=== PATIENT | female | born 1960 | race Caucasian/White ===

== ENCOUNTER 2020-11-04 14:54 | Outpatient (REF) | payer BC, SELFPAY ==
[2020-11-05 16:43] LABS: COVID-19 RT-PCR UVMMC Result Negative (Negative)
== END 2020-11-04 15:14 ==
LOC: LBN 14:54
PROVIDERS: PCP Family Medicine; Visit Provider Nurse Practitioner Adult Health
DX: R05 Cough (principal); J22 Unspecified acute lower respiratory infection; Z20.822 Contact with and (suspected) exposure to COVID-19
CPT/HCPCS: U0003

== ENCOUNTER 2021-03-24 15:21 | Outpatient (REF) | payer BC, SELFPAY ==
--- NOTE | 2021-03-24 14:30 | PAPFT_PTH ---
PATIENT: Bear Stiles LOC: MAR U#:[id number] AGE/SX: 61/F ROOM: RE03/24/[address]: Jean Pierre Humphreys MD : 1960 BED: DIS: 03/24/2021 SPEC #: [id number] RECD: 03/24/21 18:01 STATUS: ABRAHAM REToro #: [id number] SONIA: 03/24/21 14:[address]: Jean Pierre Humphreys DEPT: [facility] Cytology RECD BY: Adela Lagos Tissues: 1 - CX/ENDOCX FOR PAP SMEARS Procedures: PAP THIN PREP/UVM Screening HPV DNA PROBE Comments: [id number]
== END 2021-03-24 15:22 | disposition home or self-care (01) ==
LOC: LBN 15:21
PROVIDERS: PCP Family Medicine; Visit Provider Family Medicine
DX: Z12.4 Encounter for screening for malignant neoplasm of cervix (principal); Z11.51 Encounter for screening for human papillomavirus (HPV)
CPT/HCPCS: 88142; 87624

== ENCOUNTER 2021-04-06 01:12 | Outpatient (CLI) | payer BC, SELFPAY ==
--- NOTE | 2021-04-06 08:45 | DI.MAMMO_ITS ---
Exam(s) MAMMO SCREENING EXAM: MAMMO SCREENING CLINICAL HISTORY: screening, Z12.39. TECHNIQUE: Bilateral full field digital CC and MLO mammographic images were obtained with 3D tomosyn thesis and utilizing computer aided detection (CAD). COMPARISON: Prior mammogram performed October 2014. There are no interval mammograms. FINDINGS: Fibroglandular tissue is again noted be very dense, this decreasing the sensitivity of the mammogram for finding in underlying lesions There are no obvious new spiculated masses nor malignant appearing microcalcification groups. Multip le punctate microcalcifications in the upper-outer quadrant of the right breast are noted. There is no significant architectural distortion nor skin thickening-retraction. IMPRESSION: Very dense bilateral fibroglandular tissue. No obvious radiographic evidence of malignancy. Given the density of this patient's fibroglandular tissue I recommend screening bilateral complete br east ultrasound BI-RADS Category 2 - Benign Findings Breast Density - Category D - Extremely dense Breast density Category C or D implies that the patient has dense breast tissue. Dense breast tissue can make it harder to find cancer on a mammogram. Dense breast tissue is also associated with an incr eased risk of breast cancer. This information about the result of the mammogram report was provided to the patient to raise their awareness. Use this report when you speak with the patient about their risks for breast cancer, which includes their family history. At that time, you may recommend additional screening tests (Ultrasoun d or MRI) as these tests may add significant information. A negative radiographic report should not delay biopsy if a dominant or clinically suspicious mass is present. Up to ten percent of cancers are not identified on mammography. A negative report may reinforce clinical impression. Adenosis and dense breasts may obscure an underlying neoplasm. False positive reports average 6 to 10%. Patient will receive a letter notifying them of these results.
== END 2021-04-06 01:32 ==
PROVIDERS: PCP Family Medicine; Visit Provider Family Medicine
DX: Z12.31 Encounter for screening mammogram for malignant neoplasm of breast (principal); R92.0 Mammographic microcalcification found on diagnostic imaging of breast
CPT/HCPCS: 77063; 77067

== ENCOUNTER 2023-06-04 06:05 | Emergency (ER) | payer BC, SELFPAY ==
[2023-06-04 06:34] VITALS: BP 118/63; PULSE 62; RESP 14; TEMP 36.4; O2SAT 99
[2023-06-04 06:43] VITALS: RESP 14
--- NOTE | 2023-06-04 06:53 | ED.GENADUL_ITS ---
Discharge Plan Disposition Patient Disposition: Home Condition: Stable Discharge Details Chief Complaint: GenMedical Clinical Impression: Edema Primary Care Provider: Jean Pierre Humphreys ED Provider: Haris Carrington Home Meds and New Rx's Prescriptions: No Action No Known Home Meds Discharge Instructions Instructions: Edema (ED) Additional Instructions: Please obtain compression stockings. Please follow-up with your primary care physician. Medical Decision Making 63-year-old female presents with bilateral lower extremity edema involving feet and ankles, mild in nature, patient does walk a lot is on her feet for extended periods of time, likely simple dependent edema lower suspicion for CHF or DVT. No evidence of infection or trauma. Will dose low-dose Lasix here. Instructed patient to obtain compression stockings and continue with elevation of legs. Patient will follow with primary care physician HPI General Date/Time Provider Initiated Documentation: 06/04/23 06:12 . HPI Narrative: 63-year-old female presents with 2 to 3 weeks of bilateral lower extremity edema involving feet and ankles denies chest pain or shortness of breath. Does walk a lot and is on her feet for extended periods of time. Related Data Home Medications Medication Instructions Recorded Confirmed Unknown [No Known Home Meds] 03/24/21 06/04/23 Allergies Allergy/AdvReac Type Severity Reaction Status Date / Time No Known Allergies Allergy Verified 06/04/23 06:37 General Stated Complaint: AMS/LOC JONY: 3 Review of Systems Narrative: Review of Systems Constitutional: negative Eyes: negative ENT: negative Cardiovascular: negative Respiratory: negative Gastrointestinal: negative : negative Musculoskeletal: Lower extremity edema Skin: negative Neurologic: negative Psych: negative PFSH All Active Problems (Updated 06/04/23 @ 06:56 by Haris Carrington MD) Edema (Acute) Dense breasts (Acute) Pneumonia (Acute) Nicotine use disorder (Chronic) Medical History Nicotine use disorder Surgical History LUNG SURGERY 1995;[facility] – [place]; COLLAPSED LUNG WITH REPAIRATIVE SURGERY Family History (Updated 03/28/21 @ 15:58 by Bekah Donovan) Father Heart disease Grandfather Heart disease Grandmother TB (tuberculosis) Son , 4.5 No problems noted. Son No problems noted. Son No problems noted. Social History (Updated 03/28/21 @ 15:57 by Bekah Donovan) Smoking/Tobacco Use Status: Current every day Tobacco Type: cigarettes Tobacco: How many years used: 40 Quit status: not considering quitting Second Hand Exposure: Yes Smoking risk assessment performed?: Yes Alcohol Intake: former Drug use: Never Household members: children Housing: house Communication Needs: Corrective Lenses Do you need help understanding health information?: Never Pets and animals: No Sexually active: No Do you think of yourself as: straight/heterosexual Current gender identity: male What is your relationship status?: never How often do you talk on the phone with friends or family?: once per week How often do you get together with friends or relatives?: once per week How often do you attend buddhist or sabianist services?: decline to answer Do you belong to any clubs or organized social groups?: no Panel score (0-1 are the most socially isolated patients): 0 What type of physical activity do you participate in: walking Duration: 60-90 minutes/day Frequency: daily Kenzie/Amish: No preference Special kenzie needs: No Seatbelt use: always Helmet use: No Drive intox or ride w/intox city bus driver: No Do you feel safe at home: Yes Do you feel safe in your relationship?: Yes Exam Narrative Exam Narrative: Physical Examination General: alert, awake, cooperative, resting comfortably, no acute distress HEENT: normocephalic, atraumatic; PERRL, EOM intact, conjunctiva normal; no nasal discharge; moist mucous membranes, oral and pharyngeal mucosa normal, tolerating secretions Neck: supple, trachea midline; full ROM Chest: normal to inspection Respiratory: normal respiratory effort, speaking in full sentences Skin: no lesions, rashes or trauma appreciated Neuro: AAOx3, normal speech, moving all extremities Extremities: Mild edema to feet and ankles bilaterally Psych: Appropriate mood and affect Course Vital Signs Vital signs: Vital Signs Temperature 36.4 C L 06/04/23 06:34 Pulse 62 06/04/23 06:34 Respiratory Rate 14 06/04/23 06:34 Blood Pressure 118/63 06/04/23 06:34 Pulse Oximetry 99 06/04/23 06:34 Temperature 36.4 C L 06/04/23 06:34 Temperature Source Temporal Artery Scan 06/04/23 06:34 Pulse 62 06/04/23 06:34 Respiratory Rate 14 06/04/23 06:43 Respiratory Effort Normal, Non-Labored 06/04/23 06:43 Respiratory Depth Normal 06/04/23 06:43 Respiratory Pattern Normal 06/04/23 06:43 Blood Pressure 118/63 06/04/23 06:34 Blood Pressure Position Sitting 06/04/23 06:34 Pulse Oximetry 99 06/04/23 06:34 Oxygen Delivery Method Room Air 06/04/23 06:34 Oxygen Flow Rate 0 06/04/23 06:34 Pain Level 0 06/04/23 06:34
[2023-06-04 07:08] VITALS: BP 132/80; PULSE 75; RESP 20; TEMP 36.8; O2SAT 98
[2023-06-04] MEDS: Furosemide 20 MG/2 ML VIAL IVP (07:08)
== END 2023-06-04 07:13 | disposition home or self-care (01) ==
PROVIDERS: Emergency Provider Emergency Medicine; PCP Family Medicine
DX: R60.0 Localized edema (principal)
CPT/HCPCS: 36415; 96374; 99284; J1941

== ENCOUNTER 2023-08-22 12:05 | Emergency (ER) | payer BC, SELFPAY ==
[2023-08-22] VITALS (19 sets, daily range): BP systolic 115–173; BP diastolic 79–90; PULSE 63–82; RESP 16–18; TEMP 36.5; O2SAT 91–99
--- NOTE | 2023-08-22 12:27 | NUR.NOTE ---
Nursing Note: patient continues to cough and spit out elan red blood in to emesis bag, with runny nose patient reports no blood when she blows nose
--- NOTE | 2023-08-22 13:00 | DI.CT_ITS ---
Exam(s) CT CHEST W EXAM: CT CHEST W CLINICAL HISTORY: [id number] TECHNIQUE: Imaging Protocol: Axial computed tomography images with coronal and sagittal reformatted images were created and reviewed CONTRAST MATERIAL: Intravenous: Omnipaque 350Contrast volume:100 mL. COMPARISON: CR CHEST 2 VIEWS PA,LAT from 02/16/2013 FINDINGS: Tracheobronchial tree: Bronchiectatic changes are seen in the right upper lobe. Pulmonary parenchyma: There is a 5 mm nodule in the right middle lobe. There is a multifocal ground- glass infiltrate in the right lung predominantly in the right upper lobe. No focal consolidating inf iltrate is seen in the left. Marked bullous disease is seen in the lungs particularly the right uppe r lobe. There are areas of consolidation in the right upper lobe. There is bronchiectasis in the ri ght upper lobe. Mediastinum and Hanny: No dominant adenopathy or fluid collection. The esophagus is unremarkable. Thyroid gland: Tiny hypodensities are seen in both lobes of the thyroid gland. They are too small fo r further characterization. No follow-up is recommended. Pleura: No effusion or pneumothorax. Heart: The heart is not dilated. No coronary artery calcifications are seen. No pericardial effusion. Aorta: Thoracic aorta non-dilated. No evidence of dissection. Pulmonary arteries: There is no evidence of a central pulmonary embolism. Upper abdomen: There is a 2.1 cm cyst in the liver. There are few tiny hypodensities scattered in t he liver. They are too small for further characterization. Lymph nodes: Within normal limits. Bones: Within normal limits for the patient's age. Soft tissues: Unremarkable. IMPRESSION: 1. Right upper, middle and lower lobe infiltrate suspicious for pneumonia. 2. Marked bullous disease and bronchiectasis in the lungs particularly in the right upper lobe. 3. Findings were discussed with Dr. Leone at 2:28 p.m. on 08/22/2023. RADIATION DOSE DELIVERED: Total DLP DATA REPOSITORY: All CT scans at this facility are submitted to the National Radiology Data Registry (NRDR) Dose Index Registry (DIR) with the [employer] (ACR). RADIATION OPTIMIZATION: All CT scans at this facility use at least one of these dose optimization te chniques: automated exposure control; mA and/or kV adjustment per patient size (includes targeted exa ms where dose is matched to clinical indication); or iterative reconstruction.
--- NOTE | 2023-08-22 13:00 | W.ED.GENAD ---
Discharge Plan Disposition Patient Disposition: Home Discharge Details Clinical Impression: Pneumonia, Nicotine use disorder, Anemia, Thrombocytopenia, Bronchiectasis, Bronchospasm Primary Care Provider: Jean Pierre Humphreys ED Provider: Ashely Leone Home Meds and New Rx's Prescriptions: New azithromycin [Zithromax] 250 mg tablet 250 mg PO DAILY 4 Days Qty: 4 0RF Rx Instructions: start on day 2 of therapy albuterol sulfate 90 mcg/actuation HFA aerosol inhaler 3 puff inhalation Q4H PRNQty: 6.7 0RF Rx Instructions: Take up to 3 puffs 5 minutes apart every 4 hours as needed for wheezing. Use with spacer. Discharge Instructions Instructions: How to Stop Smoking (ED), Anemia (ED), Pneumonia (ED) Additional Instructions: 1. Call Dr. Humphreys for a follow-up appointment and recheck. Tell him you were seen in the emergency department today for coughing up blood and a CT scan revealed pneumonia. 2. Tell them you were also found to be slightly anemic and we recommended that it be rechecked. 3. We also found some blood in the urine and you will be following up with urology. 4. Start azithromycin 250 mg 1 tablet once a day for 4 days starting tomorrow. We recommend you take a probiotic while on antibiotics. 5. We have also prescribed an inhaler to take for wheezing and/or shortness of breath. Stand Alone Forms: Work Release Discharge Data Discharge Physician: Ashely Leone Medical Decision Making This is a healthy 63-year-old female with a long history of tobacco use who presents with hemoptysis. She tells me she was in her usual state of health until this morning when she developed rhinorrhea and then paroxysmal coughing and hemoptysis of bright red blood several tablespoons. She is not on therapeutic anticoagulants and denies any other pathologic bleeding or unusual bruising. She tells me she is chronically short of breath but does not use oxygen at home and is not on any inhaler. I am concerned this could be a carcinoma or chills could be minor trauma from coughing. She has had no exposure to tuberculosis. We will check her for COVID RSV and flu, we will check a CBC for leukocytosis anemia and left shift and to check her platelet count. I will also check coagulants. I will check a basic metabolic panel to check her renal function and electrolytes prior to a CT of her chest. I have spoken with the radiologist regarding the chest CT and he recommended a CT with contrast but not on a CT angio. She does have slight wheezing but I am going to hold on beta agonists until her chest CT. We will type and screen her. I will also check a urine for hematuria. Differential Diagnosis Differential Diagnosis: Hemoptysis, pneumonia, carcinoma, coagulopathy, tuberculosis Medical Records Medical records reviewed: Yes I reviewed the patient's medical records. Medical records narrative: According to her old records she has had spontaneous pneumothoraces twice with lung surgery for or repair of a pulmonary bleb. The patient did not offer the sister read to me Imaging Data Radiologic Study: Imaging: CT Scan (CT chest with IV contrast) Radiologist's impression: 1. Right upper, middle and lower lobe infiltrate suspicious for pneumonia. 2. Marked bullous disease and bronchiectasis in the lungs particularly in the right upper lobe. 3. Findings were discussed with Dr. Leone at 2:28 PM on 08/22/2023. Lab Data Lab results reviewed: Yes I reviewed the patient's lab results. Lab results narrative: Mild anemia and mild hyponatremia, hematuria. Mild thrombocytosis. The patient was updated. [facility] General Date/Time Provider Initiated Documentation: 08/22/23 12:41. Limitations to Documentation: no limitations. Information obtained by: patient. [facility] Narrative: Time seen was 1500 in bed 7. The patient is a 63-year-old female with a 45-year history of tobacco use who presents with hemoptysis. The patient states she was in her usual state of health until this morning when she began coughing and could not stop and then began coughing up bright red blood. This happened multiple times. She brought in the Kleenex into which she coughed the blood to the emergency department along with an emesis bag that had a small amount of bright red blood in it as well. She believes that she may have coughed up several tablespoons worth of blood. She states that she always bruises easily but has not noticed an increase in bruising. She is not on therapeutic anticoagulants. She denies any bleeding of her gums or blood in the urine. She denies any chest pain. She has chronic shortness of breath which is unchanged. She does not use oxygen at home. She does not use any inhalers although she has been prescribed them in the past for bronchitis. She has no history of tuberculosis. She has had similar episodes in the past associated with upper respiratory infections but they resolved spontaneously. She denies any new weight loss. She states the cough is slightly improved. She denies any fever, chills, pleuritic chest pain, or any other respiratory symptoms although she does tell me that she developed some rhinorrhea prior to the paroxysmal coughing episode today. She states that the coughing has slightly improved since arrival. The symptoms began just prior to arrival. She denies any dizziness hematuria or blood in the stool. The patient had recent cataract surgery on the left eye. Related Data Home Medications Medication Instructions Recorded Confirmed albuterol sulfate 90 mcg/actuation 3 puff inhalation Q4H PRN #6.7 08/22/23 aerosol inhaler grams azithromycin 250 mg tablet 250 mg PO DAILY 4 days #4 tabs 08/22/23 (Zithromax) Previous Rx's Medication Instructions Recorded albuterol sulfate 90 mcg/actuation 3 puff inhalation Q4H PRN #6.7 08/22/23 aerosol inhaler grams azithromycin 250 mg tablet 250 mg PO DAILY 4 days #4 tabs 08/22/23 (Zithromax) Allergies Allergy/AdvReac Type Severity Reaction Status Date / Time No Known Allergies Allergy Verified 08/22/23 12:14 General Stated Complaint: GenMedical JONY: 3 Review of Systems Narrative: see hpi PFSH All Active Problems (Updated 08/22/23 @ 14:51 by Ashely Leone MD) Bronchospasm (Acute) Bronchiectasis (Acute) Thrombocytopenia (Chronic) Anemia (Chronic) Dense breasts (Acute) Pneumonia (Acute) Nicotine use disorder (Chronic) Surgical History LUNG SURGERY 1995;[facility] – [place]; COLLAPSED LUNG WITH REPAIRATIVE SURGERY Family History Father Heart disease Grandfather Heart disease Grandmother TB (tuberculosis) Son , 4.5 No problems noted. Son No problems noted. Son No problems noted. Social History Smoking/Tobacco Use Status: Current every day Tobacco Type: cigarettes Tobacco: How many years used: 40 Quit status: not considering quitting Second Hand Exposure: Yes Smoking risk assessment performed?: Yes Alcohol Intake: current Alcohol Intake frequency: holidays/special occasions only Drug use: Never Substance use type: does not use Household members: children Housing: house Communication Needs: Corrective Lenses Do you need help understanding health information?: Never Pets and animals: No Sexually active: No Do you think of yourself as: straight/heterosexual Current gender identity: male What is your relationship status?: never How often do you talk on the phone with friends or family?: once per week How often do you get together with friends or relatives?: once per week How often do you attend catholic or scientology services?: decline to answer Do you belong to any clubs or organized social groups?: no Panel score (0-1 are the most socially isolated patients): 0 What type of physical activity do you participate in: walking Duration: 60-90 minutes/day Frequency: daily Kenzie/Orthodox: No preference Special kenzie needs: No Seatbelt use: always Helmet use: No Drive intox or ride w/intox electric pile driver operator: No Do you feel safe at home: Yes Do you feel safe in your relationship?: Yes Exam Const General: cooperative, healthy appearing, comfortable, no acute distress, well developed, well groomed and well hydrated Nutritional Appearance: well nourished Orientation: alert, awake and oriented x3 Other: The patient is a thin well-developed female in no acute distress. She is mildly hypertensive. She is not tachycardic tachypneic or febrile. Her room air O2 sat is normal at 97%. [facility] Head: normal to inspection, normocephalic and atraumatic Ears: hearing grossly normal bilaterally and external ears normal General nose exam: external nose normal, nares normal and no nasal discharge Face and sinus: normal facial exam, sinuses nontender and face symmetric Mouth: oral mucosae normal, lip normal, tongue normal, oropharynx normal, moist mucous membranes and other (Normal phonation. The patient is handling secretions.) Teeth and gingiva: poor dentition Throat: posterior oropharynx normal and uvula midline Other: No bleeding noted of the gums. Did Eyes General: appearance normal, both eyes and all related structures Eyelids: eyelids normal Conjunctivae: conjunctivae normal Sclera: sclerae normal Cornea: corneas normal Pupils: PERRL EOM: EOM intact bilaterally and No nystagmus Other: The patient has had cataract surgery in the left eye with a lens implant Neck Neck: normal visual inspection, full ROM, no lymphadenopathy, no meningeal signs, trachea midline and supple Lymphatic: no lymphadenopathy noted Chest Other: No retractions, the patient has a small well-healed surgical scar in the anterior axillary line on the right. Resp Effort & Inspection: normal respiratory effort, able to speak in complete sentences, no nasal flaring, no respiratory distress, no retractions, no stridor, not tachypneic, no tracheal deviation, no use of accessory muscles, No prolonged expiratory phase and other (Normal inspiratory to expiratory ratio.) Auscultation: clear to auscultation bilaterally, no rales, no rhonchi, wheezes right lower and right upper and no rubs Tactile Fremitus: tactile fremitus absent Cardio Jugular venous pressure: no JVD Palpation: normal PMI Rate: regular rate Rhythm: regular rhythm Heart Sounds: S1 normal, S2 normal, no gallops, no murmurs and no rubs GI Inspection: normal to inspection and non-distended Palpation: soft, no hepatosplenomegaly, no guarding and nontender Percussion: normal to percussion Auscultation: normal bowel sounds General: No CVA tenderness Back/Spine/Pelvis Back: no CVA tenderness and No back tenderness Cervical Spine: normal cervical lordosis, cervical ROM normal, No cervical muscular tenderness, No pain with cervical ROM, No cervical spinal tenderness and No step off deformity Thoracic/Lumbar Spine: thoracic and lumbar spine normal to inspection, No thoracic spinal tenderness and No lumbar spinal tenderness Pelvis: no pain with anterior-posterior compression and no pain with lateral compression Skin General skin exam: no rashes or lesions noted, turgor normal, no petechiae, no purpura and other (Skin is normal for ethnicity.) Lesions: no lesions Rashes: no rashes Trauma: no lacerations or abrasions Other: The patient is anemic Neuro General: patient alert, patient awake, patient oriented x3, gait normal, moves all extremities, no meningeal signs, no focal motor deficits and CN's II-XI intact bilaterally Cranial Nerves: CN's II-XI intact bilaterally, PERRL, accommodation normal, EOM intact bilaterally, no nystagmus, facial strength normal, tongue midline, hearing normal and no nystagmus Cognition: normal cognition Speech: speech normal Gait: normal gait Motor: muscle tone normal throughout and strength 5/5 throughout Sensory Exam: no sensory deficits noted Extrem General: normal to inspection, full ROM, capillary refill normal, no clubbing, cyanosis or edema and no calf tenderness Psych Appearance: grossly normal Affect: normal affect Attitude: cooperative Thought Process: normal Thought Content: normal Insight: insight good Judgment: judgment good Other: The patient appears to have capacity make medical decisions. Course The radiologist has called to tell me that the patient has infiltrates in the right upper and right middle lobe. No evidence of carcinoma. She does have some chronic findings such as a bleb and bronchiectasis but no spontaneous pneumothorax. Please see below. I will update the patient and order IV antibiotics as well as a DuoNeb Vital Signs Vital signs: Vital Signs Temperature 36.5 C 08/22/23 12:09 Pulse 81 08/22/23 12:09 Respiratory Rate 18 08/22/23 12:09 Blood Pressure 173/80 H 08/22/23 12:09 Pulse Oximetry 97 08/22/23 12:09 Temperature 36.5 C 08/22/23 12:43 Temperature Source Temporal Artery Scan 08/22/23 12:09 Pulse 81 08/22/23 12:43 Respiratory Rate 18 08/22/23 12:43 Respiratory Effort Normal, Non-Labored 08/22/23 12:26 Respiratory Depth Normal 08/22/23 12:26 Blood Pressure 173/80 H 08/22/23 12:43 Blood Pressure Position Sitting 08/22/23 12:09 Pulse Oximetry 97 08/22/23 12:43 Oxygen Delivery Method Room Air 08/22/23 12:43 Oxygen Flow Rate 0 08/22/23 12:09 Lab/Test Results Lab/Test Results: Mild anemia, hematuria, thrombocytosis, mild hyponatremia, COVID flu and RSV are negative. Critical Care Time Critical Care Time Total Critical Care Time: 25 Attestation: This includes time at the bedside review of old records and review of radiographs and lab work
[2023-08-22] MEDS: Normal Saline 1,000 ML 1000 ML IV (13:25)
--- NOTE | 2023-08-22 13:28 | NUR.NOTE ---
Nursing Note: patient reports not spiting up blood for the last 15mins she feels like it is subsiding
[2023-08-22 13:36] LABS: Abs Immature Grans 0.02 10^3/uL (0.0-0.06); Absolute Basophil Count 0.09 10^3/uL (0.0-0.2); Absolute Eosinophil Count 0.18 10^3/uL (0.0-0.7); Absolute Lymphocyte Count 1.79 10^3/uL (1.2-3.4); Absolute Monocyte Count 0.58 10^3/uL (0.1-0.8); Basophils % 1.2; Eosinophils % 2.4; HCT 30.1 % (36.0-46.0); HGB 8.9 g/dL (11.2-15.7); Immature Grans % 0.3; MCH 22.2 pg (27.0-33.0); MCHC 29.6 % (32.0-36.0); MCV 75 fL (80-95); MPV 10.4 fL (8.0-11.0); Monocytes % 7.8; Neutrophils % 64.3; Platelet Count 403 10^3/uL (130-400); RBC 4.01 10^6/uL (3.93-5.22); RDW-SD 43.8 fL; WBC 7.46 10^3/uL (4.4-10.8)
[2023-08-22 13:38] LABS: Anion Gap 10.4 mmol/L (3-11); BUN 13 mg/dL (7-18); CO2 25.6 mmol/L (21.0-32.0); CREATININE 0.8 mg/dL (0.55-1.02); Calcium 9.3 mg/dL (8.5-10.1); Chloride 98 mmol/L (98-107); Estimated GFR 83.78 (mL/min/1.73m2); Glucose 96 mg/dL (74-106); Potassium 3.8 mmol/L (3.5-5.1); Sodium 134 mmol/L (136-145)
[2023-08-22 13:40] LABS: Bilirubin Negative (Negative); Blood Moderate (Negative); Clarity Clear (Clear); Glucose Negative (Negative); Ketones Negative (Negative); Leukocyte Esterase Negative (Negative); Nitrite Negative (Negative); Specific Gravity <= 1.005 (1.005-1.025); Urobilinogen 0.2 mg/dL (Up to 0.2); pH 5.5 (5-8)
[2023-08-22 13:43] LABS: PTT Activated 27.5 sec (23.6-32.8); Prothrombin Time 9.9 sec (9.1-11.1)
[2023-08-22 13:50] LABS: Bacteria Negative HPF (Negative); C & S Indicated? No; Casts Negative LPF (Negative); Crystals Negative HPF (Negative); Epithelial Cells Rare HPF (Negative); Mucus Negative (Negative); WBC Negative HPF (0-5)
[2023-08-22] MEDS: Normal Saline Flush 10 ML SYR IVP (13:52)
[2023-08-22] MEDS: Omnipaque 350 MG/ML 500 ML BTL-Imaging package IJ (13:53)
[2023-08-22] MEDS: Normal Saline - Diluent 50 ML VIAL IJ (13:57)
[2023-08-22 14:10] LABS: Influenza A PCR Negative (Negative); Influenza B PCR Negative (Negative); RSV PCR Negative (Negative)
[2023-08-22 14:27] LABS: Source Nasopharynx
[2023-08-22 14:28] LABS: COVID-19 PCR Negative (Negative)
--- NOTE | 2023-08-22 14:42 | NUR.NOTE ---
Referral faxed to [facility] Urology for hematuria, urology to determine appt date. Nursing Note:
[2023-08-22] MEDS: Azithromycin 250 MG TAB 500 MG PO (15:09)
[2023-08-22] MEDS: Albuterol/Ipratropium 3 ML UPD VIAL UPD (15:10)
[2023-08-22] MEDS: cefTRIAXone 2 GM/50 ML BAG IVPB (15:10)
== END 2023-08-22 16:31 | disposition home or self-care (01) ==
PROVIDERS: Emergency Provider Emergency Medicine Emergency Medical Services; PCP Family Medicine
DX: Z72.0 Tobacco use; J18.9 Pneumonia, unspecified organism; D64.9 Anemia, unspecified; D69.6 Thrombocytopenia, unspecified; J47.9 Bronchiectasis, uncomplicated; J98.01 Acute bronchospasm
CPT/HCPCS: 36415; 80048; 86850; 86900; 86901; 87637; 94640; 96361; 96365; 99285; 71260; 81003; 81015; 85025; 85610; 85730; J7620

== ENCOUNTER 2023-08-27 06:22 | Inpatient (IN) | payer BC, SELFPAY ==
[2023-08-27] VITALS (43 sets, daily range): BP systolic 110–194; BP diastolic 59–84; PULSE 74–127; RESP 2–28; TEMP 35.7–36.8; O2SAT 87–100
--- NOTE | 2023-08-27 06:43 | W.ED.GENAD ---
Discharge Plan Disposition Patient Disposition: Admit to [facility] Discharge Details Clinical Impression: Hypoxia, Pneumonia Primary Care Provider: Jean Pierre Humphreys ED Provider: Angélica Pennington Home Meds and New Rx's Prescriptions: No Action albuterol sulfate 90 mcg/actuation HFA aerosol inhaler 3 puff inhalation Q4H PRNQty: 6.7 0RF Rx Instructions: Take up to 3 puffs 5 minutes apart every 4 hours as needed for wheezing. Use with spacer. azithromycin 250 mg tablet Patient Comments: TAKE 1 TABLET BY MOUTH DAILY FOR 4 DAYS. START ON DAY 2 OF THERAPY Medical Decision Making Emergent evaluation of shortness of breath. Initial differential includes pneumonia, bronchospasm, COPD exacerbation. I reviewed the medical record and noted that she was recently treated for pneumonia with azithromycin. She is noted to be significantly hypoxic on arrival. O2 sat improved with supplemental oxygen. She is not febrile. She is otherwise hemodynamically stable. Will give steroids and breathing treatment, will check labs and cultures. Will repeat x-ray. Anticipate admission for failed outpatient antibiotics 0745: Chest x-ray reviewed, persistent infiltrate in the right upper lobe. Patient has improved with duoneb and oxygen. Will admit for failed pna treatment, and hypoxia. IV abx have been ordered. Medical Records Medical records reviewed: Yes I reviewed the patient's medical records. Lab Data Lab results reviewed: Yes I reviewed the patient's lab results. HPI General Date/Time Provider Initiated Documentation: 08/27/23 06:23. Limitations to Documentation: no limitations. Information obtained by: patient. HPI Narrative: 63-year-old female with past medical history of tobacco abuse and recent diagnosis of pneumonia presents with shortness of breath. She reports that she was evaluated in the emergency department last week and was diagnosed with pneumonia. She was treated with azithromycin and completed the course yesterday. She reports that she has not been having a productive cough, but her cough does still persist. No fevers. Decreased appetite. She reports that her shortness of breath that has been so significant that she has not been able to smoke. Related Data Home Medications Medication Instructions Recorded Confirmed albuterol sulfate 90 mcg/actuation 3 puff inhalation Q4H PRN #6.7 08/22/23 08/27/23 aerosol inhaler grams azithromycin 250 mg tablet mg 08/27/23 Previous Rx's Medication Instructions Recorded albuterol sulfate 90 mcg/actuation 3 puff inhalation Q4H PRN #6.7 08/22/23 aerosol inhaler grams Allergies Allergy/AdvReac Type Severity Reaction Status Date / Time No Known Allergies Allergy Verified 08/27/23 06:40 General Stated Complaint: RespSymp JONY: 3 PFSH All Active Problems (Updated 08/27/23 @ 07:42 by Angélica Pennington MD) Pneumonia (Acute) Hypoxia (Acute) Bronchospasm (Acute) Bronchiectasis (Acute) Thrombocytopenia (Chronic) Anemia (Chronic) Dense breasts (Acute) Pneumonia (Acute) Nicotine use disorder (Chronic) Surgical History LUNG SURGERY 1995;[facility] – [place]; COLLAPSED LUNG WITH REPAIRATIVE SURGERY Family History Father Heart disease Grandfather Heart disease Grandmother TB (tuberculosis) Son , 4.5 No problems noted. Son No problems noted. Son No problems noted. Social History Smoking/Tobacco Use Status: Current every day Tobacco Type: cigarettes Tobacco: How many years used: 40 Quit status: not considering quitting Second Hand Exposure: Yes Smoking risk assessment performed?: Yes Alcohol Intake: current Alcohol Intake frequency: holidays/special occasions only Drug use: Never Substance use type: does not use Household members: children Housing: house Communication Needs: Corrective Lenses Do you need help understanding health information?: Never Pets and animals: No Sexually active: No Do you think of yourself as: straight/heterosexual Current gender identity: male What is your relationship status?: never How often do you talk on the phone with friends or family?: once per week How often do you get together with friends or relatives?: once per week How often do you attend zoroastrian or nondenominational services?: decline to answer Do you belong to any clubs or organized social groups?: no Panel score (0-1 are the most socially isolated patients): 0 What type of physical activity do you participate in: walking Duration: 60-90 minutes/day Frequency: daily Kenzie/Scientologist: No preference Special kenzie needs: No Seatbelt use: always Helmet use: No Drive intox or ride w/intox driver guard: No Do you feel safe at home: Yes Do you feel safe in your relationship?: Yes Exam Narrative Exam Narrative: Review of Systems: All systems reviewed & are unremarkable except as noted in HPI and below: CONSTITUTIONAL: Alert and oriented Well-developed +hypoxia HEENT: NACT EYES: PERRL, no conjunctival injection EARS: no external abnormality NOSE nares patent MOUTH Moist MM NECK: Symmetric, trachea midline, No thyromegaly THROAT oropharynx clear CVS: RRR, No murmurs or gallops. Peripheral pulses 2+ and equal in all extremities Brisk capillary refill in all extremities. No peripheral edema RESP: +tachypnea, decreased breath sounds on right bilateral expiratory wheezing GI: Soft, Nontender, Nondistended, No organomegaly MSK: Extremities with full range of motion, no deformity or TTP SKIN: Warm, Dry. No rashes or lesions. NEURO: No focal neurologic deficits. Course Vital Signs Vital signs: Vital Signs Temperature 36.8 C 08/27/23 06:34 Pulse 76 08/27/23 06:34 Respiratory Rate 16 08/27/23 06:34 Blood Pressure 138/82 08/27/23 06:34 Pulse Oximetry 87 L 08/27/23 06:34 Temperature 36.8 C 08/27/23 06:34 Temperature Source Oral 08/27/23 06:34 Pulse 76 08/27/23 06:34 Respiratory Rate 16 08/27/23 06:34 Respiratory Effort Normal 08/27/23 06:42 Blood Pressure 138/82 08/27/23 06:34 Blood Pressure Position Sitting 08/27/23 06:34 Pulse Oximetry 87 L 08/27/23 06:34 Oxygen Delivery Method Room Air 08/27/23 06:34 Oxygen Flow Rate 0 08/27/23 06:34 Lab/Test Results Lab/Test Results: 08/27/23 06:41 Blood Blood Culture - Pending 08/27/23 06:41 Blood Blood Culture - Pending
[2023-08-27 06:57] LABS: Lactate 1.1 mmol/L (0.6-1.4)
[2023-08-27 07:01] LABS: Abs Immature Grans 0.02 10^3/uL (0.0-0.06); Absolute Basophil Count 0.08 10^3/uL (0.0-0.2); Absolute Eosinophil Count 0.41 10^3/uL (0.0-0.7); Absolute Monocyte Count 0.69 10^3/uL (0.1-0.8); Absolute Neutrophil Count 6.84 10^3/uL (1.2-6.7); Basophils % 0.9; Eosinophils % 4.4; HCT 30.4 % (36.0-46.0); HGB 9.2 g/dL (11.2-15.7); Immature Grans % 0.2; MCH 22.7 pg (27.0-33.0); MCHC 30.3 % (32.0-36.0); MCV 75 fL (80-95); MPV 9.7 fL (8.0-11.0); Monocytes % 7.5; Platelet Count 439 10^3/uL (130-400); RBC 4.06 10^6/uL (3.93-5.22); RDW 16.5 % (11.7-14.6); RDW-SD 44.1 fL; WBC 9.24 10^3/uL (4.4-10.8)
[2023-08-27] MEDS: methylPREDNISolone SUCC 125 MG VIAL IVP (07:02)
[2023-08-27] MEDS: Albuterol/Ipratropium 3 ML UPD VIAL UPD ×4 (07:03→23:21)
[2023-08-27 07:24] LABS: Microcytosis 1+
[2023-08-27 07:31] LABS: ALT 23 U/L (14-59); AST 21 U/L (15-37); Alkaline Phosphatase 81 U/L (46-116); Anion Gap 11.4 mmol/L (3-11); BUN 12 mg/dL (7-18); Bilirubin, Total 0.4 mg/dL (0.2-1.0); CO2 23.6 mmol/L (21.0-32.0); CREATININE 0.8 mg/dL (0.55-1.02); Calcium 9.4 mg/dL (8.5-10.1); Chloride 98 mmol/L (98-107); Estimated GFR 83.78 (mL/min/1.73m2); Glucose 108 mg/dL (74-106); Potassium 3.4 mmol/L (3.5-5.1); Sodium 133 mmol/L (136-145); Total Protein 7.9 g/dL (6.4-8.2)
--- NOTE | 2023-08-27 07:35 | DI.RAD_ITS ---
Exam(s) XR PORTABLE CHEST AP EXAM: XR PORTABLE CHEST AP CLINICAL HISTORY: hypoxia. TECHNIQUE: 2D digital imaging was performed. COMPARISON: CR CHEST 2 VIEWS PA,LAT from 02/16/[address] CHEST W from 08/22/2023 FINDINGS: Single AP portable view. Heart size is normal. The mediastinum is not widened. Left lung is clear. There is evidence of previous surgery in the right lung apex. At this level the re is bullous disease again evident as well as pleural thickening and scarring, not associated with o bvious adjacent rib destruction. No pleural effusions. Please note that recent CT scan also revealed subtle ground-glass infiltrates in the right lung. IMPRESSION: Right lung apical findings as above. Please note that recent CT scan of 08/22/2023 revealed scattere d ground-glass infiltrates in the right lung which are probably too subtle to be seen on plain films. There are no pleural effusions. DATA REPOSITORY: RADIATION DOSE DELIVERED:
[2023-08-27 07:40] LABS: Procalcitonin < 0.1 ng/mL
[2023-08-27 07:43] LABS: COVID-19 PCR Negative (Negative); Influenza A PCR Negative (Negative); Influenza B PCR Negative (Negative); RSV PCR Negative (Negative); Source Nasopharynx
[2023-08-27] MEDS: PIPERACILLIN/TAZO 4.5 GM in Normal Saline 100 ML IVPB (08:06)
--- NOTE | 2023-08-27 08:39 | DI.VRAD_ITS ---
PROCEDURE INFORMATION: Exam: XR Chest Exam date and time: 08/27/2023 7:34 AM Age: 63 years old Clinical indication: Patient HX: Cough, hypoxia TECHNIQUE: Imaging protocol: Radiologic exam of the chest. Views: 1 view. COMPARISON: CT CHEST W 08/22/2023 1:51 PM FINDINGS: Lungs: Pleuroparenchymal scarring and bronchiectasis in the right upper lobe, stable from prior exam. No consolidation. Pleural spaces: Unremarkable. No pleural effusion. No pneumothorax. Heart/Mediastinum: Unremarkable. No cardiomegaly. Bones/joints: Unremarkable. IMPRESSION: No acute findings. Dictated and Authenticated by: Kadie Miller MD. Ordering:[facility] Gorge Muller MD
[2023-08-27] MEDS: VANCOMYCIN/WATER (PEG) 2 GM/400 ML BAG IV (08:44)
[2023-08-27] MEDS: DOXYCYCLINE 100 MG in Normal Saline 100 ML IVPB ×2 (11:08→21:35)
[2023-08-27] MEDS: Enoxaparin 40 MG/0.4 ML SYR SC (11:09)
[2023-08-27] MEDS: Normal Saline Flush 10 ML SYR IVP ×2 (11:09→21:35)
[2023-08-27] MEDS: Potassium Chloride 20 MEQ TABCR 40 MEQ PO (11:11)
[2023-08-27 11:20] LABS: Lab Add On Test DONE
[2023-08-27 11:30] LABS: Magnesium 1.9 mg/dL (1.8-2.4)
--- NOTE | 2023-08-27 11:33 | W.PM.HP.N ---
Date of service: 08/27/23 Time of Service: 11:33 Assessment and Plan Assessment and plan (1) Pneumonia: Status: Acute Assessment and plan: Was treated outpatient with course of azithromycin but symptoms started worsening again. hemoptysis resolved. Evaluation in the emergency department shows hypoxia, requiring 2 L of nasal cannula oxygen to maintain sats in the mid 90s. She was given broad-spectrum antibiotics and will be admitted to the medical surgical unit for further management. lactate, procal and cbc all negative Continue doxycycline and ceftriaxone day 1 of 5. scheduled nebulizers, incentive spirometer, acapella wean oxygen as able. (2) Nicotine use disorder: Status: Chronic Assessment and plan: smoking cessation discussed, she declines nicotine replacement. discussed with DR Vega History of Present Illness History of Present Illness Chief Complaint: shortness of breath Narrative: This is a 63-year-old female with a 45-year history of tobacco use who presented to the ED with hemoptysis. The patient states she was in her usual state of health until suddenly began coughing and could not stop and then began coughing up bright red blood. She was diagnoses with pneumonia and discharged home on azithromycin which she completed but symptoms worsening so returned again. On this visit she was found to be hypoxic, requiring supplemental oxygen to maintain oxygen sats in the 90's. She was started on broad spectrum antibiotics and hospitalist services contacted to admit for failed outpatient treatment. Hemodynamically stable with no sepsis. Review of Systems All systems reviewed & are unremarkable except as noted in HPI and below PFSH All Active Problems (Updated 08/27/23 @ 07:42 by Angélica Pennington MD) Pneumonia (Acute) Hypoxia (Acute) Bronchospasm (Acute) Bronchiectasis (Acute) Thrombocytopenia (Chronic) Anemia (Chronic) Dense breasts (Acute) Pneumonia (Acute) Nicotine use disorder (Chronic) Surgical History LUNG SURGERY 1995;[facility] [place] COLLAPSED LUNG WITH REPAIRATIVE SURGERY Family History Father Heart disease Grandfather Heart disease Grandmother TB (tuberculosis) Son , 4.5 No problems noted. Son No problems noted. Son No problems noted. Social History Smoking/Tobacco Use Status: Current every day Tobacco Type: cigarettes Tobacco: How many years used: 40 Quit status: not considering quitting Second Hand Exposure: Yes Smoking risk assessment performed?: Yes Alcohol Intake: current Alcohol Intake frequency: holidays/special occasions only Drug use: Never Substance use type: does not use Household members: children Housing: house Communication Needs: Corrective Lenses Do you need help understanding health information?: Never Pets and animals: No Sexually active: No Do you think of yourself as: straight/heterosexual Current gender identity: male What is your relationship status?: never How often do you talk on the phone with friends or family?: once per week How often do you get together with friends or relatives?: once per week How often do you attend quaker or yarsani services?: decline to answer Do you belong to any clubs or organized social groups?: no Panel score (0-1 are the most socially isolated patients): 0 What type of physical activity do you participate in: walking Duration: 60-90 minutes/day Frequency: daily Kenzie/Adventism: No preference Special kenzie needs: No Seatbelt use: always Helmet use: No Drive intox or ride w/intox driver license reviewing officer: No Do you feel safe at home: Yes Do you feel safe in your relationship?: Yes Meds Allergies and Home Medications Allergies Allergy/AdvReac Type Severity Reaction Status Date / Time No Known Allergies Allergy Verified 08/27/23 10:24 Home Medications Medication Instructions Recorded Confirmed Type albuterol sulfate 90 mcg/actuation 3 puff inhalation Q4H PRN #6.7 08/22/23 08/27/23 Rx aerosol inhaler grams azithromycin 250 mg tablet mg 08/27/23 History Exam Const General: comfortable, no acute distress and frail appearing Nutritional Appearance: thin Orientation: alert, awake and oriented x3 HENMT Head: normal to inspection, normocephalic and atraumatic Face and sinus: normal facial exam Chest Chest: normal inspection of the chest Resp Auscultation: diminished lung sounds, no rhonchi and no wheezes Cardio Rate: regular rate Rhythm: regular rhythm GI Inspection: normal to inspection Skin General skin exam: no rashes or lesions noted Neuro General: patient alert, patient awake and patient oriented x3 Extrem General: normal to inspection, full ROM and no pedal edema Results Labs 08/27/23 06:52 08/27/23 06:52 Labs: Laboratory Results - last 24 hr 08/27/23 08/27/23 06:52 06:54 WBC 9.24 RBC 4.06 Hgb 9.2 L Hct 30.4 L MCV 75 L MCH 22.7 L MCHC 30.3 L RDW 16.5 H Plt Count 439 H MPV 9.7 Immature Gran % 0.2 Neutrophils % 74.0 Lymphocytes % 13.0 Monocytes % 7.5 Eosinophils % 4.4 Basophils % 0.9 Nucleated RBC % 0.0 Absolute Neutrophils 6.84 H Absolute Lymphocytes 1.20 Absolute Monocytes 0.69 Absolute Eosinophils 0.41 Absolute Basophils 0.08 RBC Morphology See Below Microcytosis 1+ VBG Lactate 1.1 Sodium 133 L Potassium 3.4 L Chloride 98 Carbon Dioxide 23.6 Anion Gap 11.4 H BUN 12 Creatinine 0.8 Est GFR (CKD-EPI 2020) 83.78 Glucose 108 H Calcium 9.4 Total Bilirubin 0.4 AST 21 ALT 23 Alkaline Phosphatase 81 Total Protein 7.9 Albumin 4.0 Procalcitonin < 0.1 COVID-19 Source Nasopharynx SARS-CoV-2 (PCR) Negative Influenza Type A (PCR) Negative Influenza Type B (PCR) Negative RSV (PCR) Negative Add-On Test Request DONE Last Vital Signs Temp 35.7 C L 08/27/23 10:40 Pulse 84 08/27/23 10:40 Resp 18 08/27/23 10:40 BP 129/74 08/27/23 10:40 Pulse Ox 94 08/27/23 10:40 Time Spent Time spent with Patient: 55-74 minutes Time was spent: preparing to see the patient(eg.review tests), obtaining and/or reviewing separately otained hiistory, ordering medications,tests, procedures, indepentently interpreting results and counseling the patient
[2023-08-27] MEDS: cefTRIAXone 2 GM/50 ML BAG IVPB (14:51)
[2023-08-27 23:46] LABS: Legionella Ag Detection Urine Negative (Negative)
[2023-08-28] VITALS (18 sets, daily range): BP systolic 111–130; BP diastolic 65–76; PULSE 70–133; RESP 2–26; TEMP 35.6–36.9; O2SAT 92–99
[2023-08-28] MEDS: Albuterol/Ipratropium 3 ML UPD VIAL UPD ×4 (06:07→23:13)
[2023-08-28 07:05] LABS: Abs Immature Grans 0.07 10^3/uL (0.0-0.06); Absolute Basophil Count 0.05 10^3/uL (0.0-0.2); Absolute Eosinophil Count 0.05 10^3/uL (0.0-0.7); Absolute Lymphocyte Count 1.66 10^3/uL (1.2-3.4); Absolute Monocyte Count 1.14 10^3/uL (0.1-0.8); Basophils % 0.3; Eosinophils % 0.3; HCT 24.7 % (36.0-46.0); HGB 7.6 g/dL (11.2-15.7); Immature Grans % 0.5; MCHC 30.8 % (32.0-36.0); MCV 75 fL (80-95); MPV 10.1 fL (8.0-11.0); Monocytes % 7.6; Neutrophils % 80.3; RBC 3.31 10^6/uL (3.93-5.22); RDW 16.8 % (11.7-14.6); RDW-SD 45.6 fL; WBC 15.05 10^3/uL (4.4-10.8)
[2023-08-28 07:10] LABS: Absolute Neutrophil Count 12.09 10^3/uL (1.2-6.7)
[2023-08-28 07:12] LABS: Anion Gap 11.3 mmol/L (3-11); BUN 11 mg/dL (7-18); CO2 22.7 mmol/L (21.0-32.0); CREATININE 0.7 mg/dL (0.55-1.02); Calcium 9.2 mg/dL (8.5-10.1); Chloride 107 mmol/L (98-107); Estimated GFR 98.34 (mL/min/1.73m2); Glucose 110 mg/dL (74-106); Potassium 3.7 mmol/L (3.5-5.1); Sodium 141 mmol/L (136-145)
[2023-08-28 07:41] LABS: Diff Comment Diff Reviewed; Hypochromasia 2+; Microcytosis 2+; Platelet Count 407 10^3/uL (130-400); Poikilocytes 1+
[2023-08-28] MEDS: Pantoprazole 40 MG TABCR PO (07:52)
[2023-08-28] MEDS: predniSONE 20 MG TAB 40 MG PO (07:52)
--- NOTE | 2023-08-28 08:50 | INITIAL_ITS ---
Date of service: 08/28/23 Time of Service: 08:51 Care Management Initial Assmt Initial Assessment REASON FOR HOSPITALIZATION:: Pneumonia PREVIOUS FUNCTIONAL STATUS/SOCIAL/FAMILY SUPPORTS:: Bear lives in a single family house [place] with one of her sons. She is currently employed at [employer] where she has worked for the past 10 years. Bear has one other child, another son, who lives just down the street from her. Bear shared that she has a strong support system. She is close to her [id number] who she says is just like a brother to her. She also has a nephew Jasson who is very supportive as well as many friends, coworkers and neighbors. Bear also communicates regularly with her mother and sister in [place]. She does not drive but state she has many people who help her with transportation and shopping. CURRENT FUNCTIONAL STATUS:: Bear was sitting up in a chair when CM met with her. She was very friendly and talkative. She described the course of her illness which began last while she was at work. She described the hemoptysis and discussed the other 3 episodes of pneumonia she has had in the past. Bear also shared that she has recently had cataract surgery on one eye and is scheduled to have the other one done later this month. She reported that her work has been very understanding about her visual issues and have made accommodations for her. ADVANCE DIRECTIVES:: none on file Has patient been provided with info about the portal/API?: Yes Did the patient sign up for the portal?: No CODE STATUS:: Full Code INSURANCE COVERAGE / FINANCIAL ISSUES:: BC/BS out of state CURRENT HOME/COMMUNITY SERVICES/EQUIPMENT:: none PRIMARY CARE PHYSICIAN:: Jean Pierre Humphreys POTENTIAL DISCHARGE NEEDS:: follow up with PCP and plan of care PATIENT/FAMILY EDUCATION NEEDS:: Review of discharge instructions including limitations, activity, medications, follow up plan, discuss Ask Me Three TRANSPORTATION:: via private vehicle with friends/family PLAN:: Bear will likely be discharged home with no new services. She will follow up with her community providers and plan of care and transport with her [id number]-ed-kjg. CM will follow and assess for discharge concerns. PFSH All Active Problems (Updated 08/28/23 @ 14:53 by Elena Aden NP) Discharge planning issues (Acute) Pneumonia (Acute) Hypoxia (Acute) Bronchospasm (Acute) Bronchiectasis (Acute) Thrombocytopenia (Chronic) Anemia (Chronic) Dense breasts (Acute) Pneumonia (Acute) Nicotine use disorder (Chronic) Surgical History LUNG SURGERY 1995;[facility] [place]; COLLAPSED LUNG WITH REPAIRATIVE SURGERY Family History Father Heart disease Grandfather Heart disease Grandmother TB (tuberculosis) Son , 4.5 No problems noted. Son No problems noted. Son No problems noted. Social History Smoking/Tobacco Use Status: Current every day Tobacco Type: cigarettes Tobacco: How many years used: 40 Quit status: not considering quitting Second Hand Exposure: Yes Smoking risk assessment performed?: Yes Alcohol Intake: current Alcohol Intake frequency: holidays/special occasions only Drug use: Never Substance use type: does not use Household members: children Housing: house Communication Needs: Corrective Lenses Do you need help understanding health information?: Never Pets and animals: No Sexually active: No Do you think of yourself as: straight/heterosexual Current gender identity: male What is your relationship status?: never How often do you talk on the phone with friends or family?: once per week How often do you get together with friends or relatives?: once per week How often do you attend zoroastrianism or restorationist services?: decline to answer Do you belong to any clubs or organized social groups?: no Panel score (0-1 are the most socially isolated patients): 0 What type of physical activity do you participate in: walking Duration: 60-90 minutes/day Frequency: daily Kenzie/Samaritan: No preference Special kenzie needs: No Seatbelt use: always Helmet use: No Drive intox or ride w/intox heavy truck driver: No Do you feel safe at home: Yes Do you feel safe in your relationship?: Yes
[2023-08-28] MEDS: Normal Saline Flush 10 ML SYR IVP ×3 (10:02→21:35)
[2023-08-28] MEDS: DOXYCYCLINE 100 MG in Normal Saline 100 ML IVPB ×2 (10:03→21:35)
[2023-08-28] MEDS: cefTRIAXone 2 GM/50 ML BAG IVPB (12:51)
--- NOTE | 2023-08-28 14:47 | W.PM.PROGNOT ---
Date of Service Date of service: 08/28/23 Time of Service: 14:47 Assessment and Plan Assessment and plan (1) Pneumonia: Status: Acute Assessment and plan: Continue doxycycline and ceftriaxone day 2 of 5. scheduled nebulizers, incentive spirometer, acapella was weaned off oxygen at rest, check ambulatory pulse oximetry. (2) Nicotine use disorder: Status: Chronic Assessment and plan: smoking cessation discussed, she declines nicotine replacement. (3) Anemia: Status: Chronic Assessment and plan: check anemia labs. no active bleeding noted check stool OB. monitor labs and vitals closely (4) Discharge planning issues: Status: Acute Assessment and plan: anticipate discharge to home tomorrow if remains medically stable. discussed with DR Varghese Subjective Subjective Patient reports: feels better, tolerating liquids well, tolerating a regular diet, voiding w/o difficulty, shortness of breath (with activity) and afebrile Exam Const General: comfortable, no acute distress and frail appearing Nutritional Appearance: thin Orientation: alert, awake and oriented x3 HENMT Head: normal to inspection, normocephalic and atraumatic Face and sinus: normal facial exam Chest Chest: normal inspection of the chest Resp Auscultation: diminished lung sounds, no rhonchi and no wheezes Cardio Rate: regular rate Rhythm: regular rhythm GI Inspection: normal to inspection Skin General skin exam: no rashes or lesions noted Neuro General: patient alert, patient awake and patient oriented x3 Extrem General: normal to inspection, full ROM and no pedal edema Objective Last Vital Signs Temp 35.6 C L 08/28/23 11:05 Pulse 97 H 08/28/23 11:48 Resp 22 08/28/23 11:48 BP 116/72 08/28/23 11:05 Pulse Ox 99 08/28/23 11:48 Laboratory Results - last 24 hr 08/27/23 08/28/23 14:09 06:20 WBC 15.05 H RBC 3.31 L Hgb 7.6 L Hct 24.7 L MCV 75 L MCH 23.0 L MCHC 30.8 L RDW 16.8 H Plt Count 407 H MPV 10.1 Immature Gran % 0.5 Neutrophils % 80.3 Lymphocytes % 11.0 Monocytes % 7.6 Eosinophils % 0.3 Basophils % 0.3 Nucleated RBC % 0.0 Absolute Neutrophils 12.09 H Absolute Lymphocytes 1.66 Absolute Monocytes 1.14 H Absolute Eosinophils 0.05 Absolute Basophils 0.05 RBC Morphology See Below Hypochromasia 2+ Poikilocytosis 1+ Microcytosis 2+ Sodium 141 Potassium 3.7 Chloride 107 Carbon Dioxide 22.7 Anion Gap 11.3 H BUN 11 Creatinine 0.7 Est GFR (CKD-EPI 2020) 98.34 Glucose 110 H Calcium 9.2 Magnesium 2.0 Urine Legionella Ag Negative Time Spent with Patient Time Spent with Patient: 35-49 minutes Time was spent: preparing to see the patient(eg.review tests), ordering medications,tests, procedures, indepentently interpreting results and counseling the patient
--- NOTE | 2023-08-28 15:49 | CHAPLAIN ---
Bear was sitting up in the chair when I visited. She said she's feeling better, but also said she needed to slow down in talking because she was getting out of breath. Her sons, who are local, have been in touch, and Bear said she is going to call her mom who lives in [place]. She told me about driving to [place] with her sons to visit her mom, calling it an adventure. I will continue to visit.
[2023-08-29] VITALS (12 sets, daily range): BP systolic 117–132; BP diastolic 64–76; PULSE 82–129; RESP 2–22; TEMP 35.5–36.6; O2SAT 94–98
[2023-08-29] MEDS: Albuterol/Ipratropium 3 ML UPD VIAL UPD ×4 (06:00→23:09)
[2023-08-29 08:39] LABS: BUN 14 mg/dL (7-18); CREATININE 0.8 mg/dL (0.55-1.02); Calcium 9.4 mg/dL (8.5-10.1); Chloride 105 mmol/L (98-107); Estimated GFR 83.78 (mL/min/1.73m2); Ferritin 18 ng/mL (8-252); Glucose 88 mg/dL (74-106); Iron 8 ug/dL (50-170); Sodium 140 mmol/L (136-145); Total Iron Binding Capacity 335 ug/dL (250-450); Transferrin Sat 2 % (15-50)
[2023-08-29] MEDS: Polyethylene Glycol 3350 17 GM PACKET PO (09:11)
[2023-08-29] MEDS: predniSONE 20 MG TAB 40 MG PO (09:34)
[2023-08-29] MEDS: Pantoprazole 40 MG TABCR PO (09:34)
[2023-08-29] MEDS: DOXYCYCLINE 100 MG in Normal Saline 100 ML IVPB ×2 (09:46→21:31)
[2023-08-29] MEDS: Normal Saline Flush 10 ML SYR IVP ×4 (09:46→21:31)
[2023-08-29 10:07] LABS: HCT 25.7 % (36.0-46.0); HGB 7.7 g/dL (11.2-15.7); MCH 22.6 pg (27.0-33.0); MCV 75 fL (80-95); Platelet Count 463 10^3/uL (130-400); RBC 3.41 10^6/uL (3.93-5.22); RDW 17.2 % (11.7-14.6); RDW-SD 46.7 fL; WBC 14.26 10^3/uL (4.4-10.8)
[2023-08-29 10:08] LABS: Abs Immature Grans 0.07 10^3/uL (0.0-0.06); Absolute Basophil Count 0.04 10^3/uL (0.0-0.2); Absolute Eosinophil Count 0.13 10^3/uL (0.0-0.7); Absolute Lymphocyte Count 2.22 10^3/uL (1.2-3.4); Basophils % 0.3; Eosinophils % 0.9; Immature Grans % 0.5; Lymphocytes % 15.6; MPV 9.9 fL (8.0-11.0); Monocytes % 7.7
[2023-08-29] MEDS: Enoxaparin 40 MG/0.4 ML SYR SC (11:39)
[2023-08-29] MEDS: cefTRIAXone 2 GM/50 ML BAG IVPB (11:40)
--- NOTE | 2023-08-29 15:47 | W.PM.PROGNOT ---
Date of Service Date of service: 08/29/23 Time of Service: 10:00 Assessment and Plan Assessment and plan (1) Pneumonia: Status: Acute Assessment and plan: Same plan as previously established. considering discharge on oral antibiotics on 08/30 Continue doxycycline and ceftriaxone day 4 of 5. scheduled nebulizers, incentive spirometer, acapella was weaned off oxygen at rest, ambulatory pulse oximetry completed and no oxygen requirement. (2) Nicotine use disorder: Status: Chronic Assessment and plan: smoking cessation discussed, she still declines nicotine replacement. (3) Anemia: Status: Chronic Assessment and plan: Follow up on anemia labs. no active bleeding since saturday as per patient check stool OB. monitor labs and vitals closely Iron replacement ordered today and another dose prior to d/c on 08/30 then oral iron at home. (4) Discharge planning issues: Status: Acute Assessment and plan: anticipate discharge to home tomorrow after IV iron if remains medically stable discussed with DR Varghese Subjective Subjective Patient reports: no new complaints, feels better, tolerating liquids well, tolerating a regular diet, voiding w/o difficulty, flatus, shortness of breath and afebrile; denies still having pain, diarrhea, blood in stool, nausea or vomiting Exam Narrative Exam Narrative: Constitutional The patient is sitting in chair, cooperative during the interview. The patient is well groomed without acute distress and has thin body habitus HENMT: Head is atraumatic, normocephalic, no lymphadenopathy. Facial structures with normal appearance Eyes: Well aligned, Neck: Normal ROM Neuro:alert and oriented to self, person, place, time and situation. No neurological focal deficit Resp: Normal respiratory pattern, speaks in 4-5 words sentences, unlabored breathing but gaps at the end of a long sentence, clear lung bilaterally, diminished bases Cardio: regular rhythm, S1, S2, no murmur, bilateral radial and dorsalis pedis pulses are positive, palpable GI: Abdomen is not distended, soft and non tender, bowel sounds are present : Negative Costovertebral angle tenderness, no bladder distension Back/spine/Pelvis: No back tenderness, normal alignment Integumentary: No skin lesions or rash Extremities: strength 5/5 to bilateral lower and upper extremities Psych: RASS 0, congruent mood and normal affect. Objective Last Vital Signs Temp 35.5 C L 11/09/23 15:13 Pulse 90 08/29/23 15:13 Resp 18 08/29/23 15:13 BP 132/75 08/29/23 15:13 Pulse Ox 97 08/29/23 15:13 Laboratory Results - last 24 hr 08/29/23 06:10 WBC 14.26 H RBC 3.41 L Hgb 7.7 L Hct 25.7 L MCV 75 L MCH 22.6 L MCHC 30.0 L RDW 17.2 H Plt Count 463 H MPV 9.9 Reticulocyte % (Auto) 2.0 Immature Gran % 0.5 Neutrophils % 75.0 Lymphocytes % 15.6 Monocytes % 7.7 Eosinophils % 0.9 Basophils % 0.3 Nucleated RBC % 0.0 Absolute Neutrophils 10.70 H Absolute Lymphocytes 2.22 Absolute Monocytes 1.10 H Absolute Eosinophils 0.13 Absolute Basophils 0.04 Sodium 140 Potassium 4.0 Chloride 105 Carbon Dioxide 24.0 Anion Gap 11.0 BUN 14 Creatinine 0.8 Est GFR (CKD-EPI 2020) 83.78 Glucose 88 Calcium 9.4 Iron 8 L TIBC 335 Transferrin % Sat 2 L Ferritin 18 Time Spent with Patient Time Spent with Patient: >50 minutes Time was spent: preparing to see the patient(eg.review tests), ordering medications,tests, procedures, referring, communicating with other health healthcare project manager, indepentently interpreting results, counseling the patient and care coordination
[2023-08-29] MEDS: IRON SUCROSE COMPLEX 400 MG in Normal Saline 250 ML 100 MG IVPB (15:56)
--- NOTE | 2023-08-29 17:06 | PDOC.CMPRO ---
Date of service: 08/29/23 Time of Service: 17:06 Care Management Progress Note Progress Note Text Progress Note Text: S/O:Bear was sitting up in a chair when CM met with her. She had been told she would be discharged today however there were one or two things not in place yet. Bear has been found to be anemic and that issue has not been resolved. In addition, she requested a nebulizer to be used at home and it has not been delivered yet. Bear will remain one more night and likely discharge home tomorrow. Clinically she is doing well and is saturating in the high 90s on room air. A: Bear is a 63 year old woman admitted on 08/27/23 with pneumonia P:Bear will be discharged home with no new services. She will follow up with her community providers and plan of care and transport with her [id number].
[2023-08-30] VITALS (7 sets, daily range): BP systolic 127–145; BP diastolic 67–79; PULSE 78–98; RESP 2–20; TEMP 36.9–37.2; O2SAT 93–98
[2023-08-30] MEDS: Albuterol/Ipratropium 3 ML UPD VIAL UPD ×2 (05:26→13:10)
[2023-08-30] MEDS: predniSONE 20 MG TAB 40 MG PO (07:43)
[2023-08-30] MEDS: Pantoprazole 40 MG TABCR PO (07:43)
[2023-08-30 08:33] LABS: Abs Immature Grans 0.09 10^3/uL (0.0-0.06); Absolute Eosinophil Count 0.09 10^3/uL (0.0-0.7); Absolute Lymphocyte Count 2.49 10^3/uL (1.2-3.4); Absolute Monocyte Count 1.22 10^3/uL (0.1-0.8); Basophils % 0.5; Eosinophils % 0.8; HCT 24.5 % (36.0-46.0); HGB 7.5 g/dL (11.2-15.7); Immature Grans % 0.8; Lymphocytes % 22.6; MCHC 30.6 % (32.0-36.0); MCV 75 fL (80-95); MPV 10.4 fL (8.0-11.0); Monocytes % 11.1; Neutrophils % 64.2; Platelet Count 471 10^3/uL (130-400); RBC 3.26 10^6/uL (3.93-5.22); RDW 17.1 % (11.7-14.6); RDW-SD 46.6 fL; WBC 11.02 10^3/uL (4.4-10.8)
[2023-08-30 08:37] LABS: Absolute Basophil Count 0.06 10^3/uL (0.0-0.2); Absolute Neutrophil Count 7.07 10^3/uL (1.2-6.7)
[2023-08-30 08:49] LABS: Anion Gap 11.3 mmol/L (3-11); BUN 14 mg/dL (7-18); CO2 24.7 mmol/L (21.0-32.0); CREATININE 0.7 mg/dL (0.55-1.02); Calcium 9.3 mg/dL (8.5-10.1); Chloride 103 mmol/L (98-107); Estimated GFR 98.34 (mL/min/1.73m2); Glucose 93 mg/dL (74-106); Potassium 3.8 mmol/L (3.5-5.1); Sodium 139 mmol/L (136-145)
[2023-08-30] MEDS: Normal Saline Flush 10 ML SYR IVP (08:59)
[2023-08-30] MEDS: DOXYCYCLINE 100 MG in Normal Saline 100 ML IVPB (09:00)
[2023-08-30] MEDS: IRON SUCROSE COMPLEX 300 MG in Normal Saline 250 ML 167 MG IVPB (10:13)
--- NOTE | 2023-08-30 10:22 | W.PM.DS.N ---
Date of service: 08/29/23 Time of Service: 11:39 DS: Diagnosis Discharge Diagnosis (1) Pneumonia: Status: Acute (2) Nicotine use disorder: Status: Chronic (3) Anemia: Status: Chronic (4) Discharge planning issues: Status: Acute Discharge Plan Disposition Patient Disposition: Home Condition: Improving Discharge Details Reason For Visit: Pneumonia, COPD, Hypoxia Admit Date/Time: 08/27/23 09:28 Admit Provider: Maureen Vega Attending Provider: Maureen Vega Primary Care Provider: Jean Pierre Humphreys Hospital Course Hospital Course: This 63-year-old female patient with history of tobacco abuse now down to 22.5 pack-year, previous diagnosis of pneumonia with failed treatment with Azithromycin, presented to the ED at [facility] on 08/27 with c/o of worsening symptoms, sudden non-stop coughing and hemoptysis. The patient was hypoxic on arrival and required oxygen supplementation to maintain saturation above 90%.The patient received ceftriaxone and doxycycline IV in the ED. Remarkable labs in the ED were H&H 9.2/30.4, MCV 75, iron 8, transferrin sat 2%. 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 The hospitalist was consulted and the patient was admitted for evaluation and management of pneumonia failing outpatient treatment, anemia. During the stay the patient was weaned of oxygen has no further oxygen requirement. The patient also received IV iron sucrose, and will continue oral iron at home. The patient will also continue oral antibiotic therapy to treat the pneumonia. She will need a follow up CBC on Wednesday 09/05 and a follow-up with her PCP on 09/06.She will have to abstain from work until the 09/06 inclusively and return to work as per her PCP?s evaluation. Home Meds and New Rx's Prescriptions: New doxycycline hyclate 100 mg Capsule 100 mg PO Q12H Qty: 5 0RF cefpodoxime 200 mg Tablet 400 mg PO Q12H Qty: 5 0RF prednisone 20 mg Tablet See Taper PO DAILY Qty: 5 0RF Taper: Prednisone 20mg taper 30 mg Daily for 1 Day and 0 Hour 20 mg Daily for 1 Day and 0 Hour 10 mg Daily for 1 Day and 0 Hour Continued albuterol sulfate 90 mcg/actuation HFA aerosol inhaler 3 puff inhalation Q4H PRNQty: 6.7 0RF Rx Instructions: Take up to 3 puffs 5 minutes apart every 4 hours as needed for wheezing. Use with spacer. Discharge Instructions Stand Alone Forms: Nursing Discharge Form Referrals: Jean Pierre Humphreys MD [Primary Care Provider] - 09/05/23 8:20 am Activity:: Activity as Tolerated Equipment/Supplies:: Walker Diet:: As Tolerated Discharge Orders Discharge Orders: Discharge Order (Routine); Ordered 08/30/23 Ordered By: Olamide Yang Other Ambulatory Orders: Complete Blood Count w/Diff (Routine) Timeframe: [id number] Location: None Selected Ordered By: Olamide Yang DS: Summary Time Spent with Patient providing and/or coordinating discharge services: Greater than 30 minutes Status at Discharge Functional status at discharge: independent ambulation Overall status at discharge: patient is progressing back to baseline Mental Status: mental status grossly normal Speech and Movement: speech and movement normal Mood: congruent mood Affect: normal affect Exam Psych Mental Status: mental status grossly normal Speech and Movement: speech and movement normal Mood: congruent mood Affect: normal affect DS: Data Vitals/I&O Vitals and I&O: Vital Signs Temperature 35.6 C L 08/29/23 09:17 Temperature Source Tympanic 08/29/23 09:17 Pulse 86 08/29/23 09:17 Pulse Rhythm Regular 08/29/23 08:40 Pulse 93 H 08/27/23 09:50 Respiratory Rate 18 08/29/23 09:17 Respiratory Effort Normal, Non-Labored 08/29/23 08:40 Respiratory Depth Normal 08/29/23 08:40 Respiratory Pattern Normal 08/29/23 08:40 Blood Pressure 128/76 08/29/23 09:17 Blood Pressure Mean 82 08/27/23 09:46 Blood Pressure Position Sitting 08/27/23 06:34 Pulse Oximetry 98 08/29/23 09:17 Oxygen Delivery Method Room Air 08/29/23 09:17 Oxygen Flow Rate 0 08/29/23 09:17 Pain Level 0 08/29/23 09:17 Comment HR increased with activity. 08/28/23 19:28 Intake & Output 08/28/23 08/28/23 08/29/23 11:59 23:59 11:59 Intake Total 600 / 990 390 / 990 760 / 760 Output Total 2250 / 3450 1200 / 3450 150 / 150 Balance -1650 / -2460 -810 / -2460 610 / 610 Intake: IV 100 / 250 150 / 250 Oral 500 / 740 240 / 740 760 / 760 Output: Urine 2250 / 3450 1200 / 3450 150 / 150 Other: Urine Color Yellow Yellow Yellow Urine Appearance Clear Clear Clear Urine Odor None None None Comment unmeasured void Voiding Methods Toilet Toilet Toilet Data Completed and Pending Labs on day of discharge: Labs from last 24 hours 08/29/23 08/29/23 08/29/23 09:05 06:10 01:52 WBC 14.26 H RBC 3.41 L Hgb 7.7 L Hct 25.7 L MCV 75 L MCH 22.6 L MCHC 30.0 L RDW 17.2 H Plt Count 463 H MPV 9.9 Reticulocyte % (Auto) 2.0 Immature Gran % 0.5 Neutrophils % 75.0 Lymphocytes % 15.6 Monocytes % 7.7 Eosinophils % 0.9 Basophils % 0.3 Nucleated RBC % 0.0 Absolute Neutrophils 10.70 H Absolute Lymphocytes 2.22 Absolute Monocytes 1.10 H Absolute Eosinophils 0.13 Absolute Basophils 0.04 Sodium 140 Potassium 4.0 Chloride 105 Carbon Dioxide 24.0 Anion Gap 11.0 BUN 14 Creatinine 0.8 Est GFR (CKD-EPI 2020) 83.78 Glucose 88 Calcium 9.4 Iron 8 L TIBC 335 Transferrin % Sat 2 L Ferritin 18 M. pneumoniae Source Pending M. pneumoniae (PCR) Pending Ur Strep pneumoniae Ag Pending 08/29/23 09:05 Sputum Sputum Culture - Pending 08/29/23 09:05 Sputum Gram Stain - Pending Preliminary micro results at discharge 08/27/23 07:02 Blood Culture - Preliminary Blood NO GROWTH 48 HOURS 08/29/23 09:05 Sputum Culture - Pending Sputum Gram Stain - Pending 08/27/23 06:52 Blood Culture - Preliminary Blood NO GROWTH 48 HOURS PFSH All Active Problems (Updated 08/28/23 @ 14:53 by Elena Aden NP) Discharge planning issues (Acute) Pneumonia (Acute) Hypoxia (Acute) Bronchospasm (Acute) Bronchiectasis (Acute) Thrombocytopenia (Chronic) Anemia (Chronic) Dense breasts (Acute) Pneumonia (Acute) Nicotine use disorder (Chronic) Surgical History LUNG SURGERY 1995;[facility] [place]; COLLAPSED LUNG WITH REPAIRATIVE SURGERY Family History Father Heart disease Grandfather Heart disease Grandmother TB (tuberculosis) Son , 4.5 No problems noted. Son No problems noted. Son No problems noted. Social History Smoking/Tobacco Use Status: Current every day Tobacco Type: cigarettes Tobacco: How many years used: 40 Quit status: not considering quitting Second Hand Exposure: Yes Smoking risk assessment performed?: Yes Alcohol Intake: current Alcohol Intake frequency: holidays/special occasions only Drug use: Never Substance use type: does not use Household members: children Housing: house Communication Needs: Corrective Lenses Do you need help understanding health information?: Never Pets and animals: No Sexually active: No Do you think of yourself as: straight/heterosexual Current gender identity: male What is your relationship status?: never How often do you talk on the phone with friends or family?: once per week How often do you get together with friends or relatives?: once per week How often do you attend bahai or congregational services?: decline to answer Do you belong to any clubs or organized social groups?: no Panel score (0-1 are the most socially isolated patients): 0 What type of physical activity do you participate in: walking Duration: 60-90 minutes/day Frequency: daily Kenzie/Hoahaoism: No preference Special kenzie needs: No Seatbelt use: always Helmet use: No Drive intox or ride w/intox semi driver: No Do you feel safe at home: Yes Do you feel safe in your relationship?: Yes Time Spent with Patient Time Spent with Patient: >85 minutes Time was spent: preparing to see the patient(eg.review tests), ordering medications,tests, procedures, referring, communicating with other health acute care nurse practitioner, indepentently interpreting results, counseling the patient and care coordination
--- NOTE | 2023-08-30 10:52 | PDOC.CMDIS ---
Date of service: 08/30/23 Time of Service: 10:52 LACE Index Scoring Tool Questions: Length of Stay (in days): 3 Was the patient admitted via the E.D.?: Yes E.D. Visits: 3 Answers: Total Score: 9 Risk of Readmission: Low Risk Care Management Discharge Plan Reason for Hospitalization: Pneumonia Discharge Plan: Bear will be discharged home with no new services. She will follow up with her community providers and plan of care and transport with her [id number]. Patient/Family Education Needs: Review of discharge instructions including limitations, activity, medications, follow up plan, discuss Ask Me Three
[2023-08-30] MEDS: Cefpodoxime 200 MG TAB 400 MG PO (12:10)
[2023-08-30] MEDS: Enoxaparin 40 MG/0.4 ML SYR SC (12:10)
[2023-09-01 16:56] LABS: Streptococcus Pneumoniae Ag, U Negative (Negative)
== END 2023-08-30 14:55 | disposition home or self-care (01) | DRG 194 ==
LOC: ER 07:42 → MS 10:33
PROVIDERS: Nurse Practitioner Acute Care; Admitting Provider Internal Medicine; Emergency Provider Emergency Medicine; PCP Family Medicine; Visit Provider Internal Medicine
DX: J18.9 Pneumonia, unspecified organism (principal); J47.1 Bronchiectasis with (acute) exacerbation; R04.2 Hemoptysis; F17.210 Nicotine dependence, cigarettes, uncomplicated; R09.02 Hypoxemia; D69.6 Thrombocytopenia, unspecified; D64.9 Anemia, unspecified
CPT/HCPCS: 00123; 36415; 80048; 80053; 84145; 87040; 87449; 87637; 94618; 96365; 96366; 96375; 99285; J1650; 71045; 82728; 83540; 83550; 83605; 83735; 85025; 85045; 87070; 87205; 87581; 87899; 94640; 94667; 94668; 94760; 99222; 99232; 99239; J1756; J2543; J2930; J7512; J7620

== ENCOUNTER 2023-09-02 04:54 | Inpatient (IN) | payer BC, SELFPAY ==
[2023-09-02] VITALS (46 sets, daily range): BP systolic 106–148; BP diastolic 64–89; PULSE 72–102; RESP 2–26; TEMP 36.1–36.9; O2SAT 90–99
--- NOTE | 2023-09-02 04:45 | RT.EKG_ITS ---
APPROVED REPORT Exam: Resting ECG Reason for Exam: SOB Patient Location: E HR:79 bpm ECG Measurements Heart Rate 79 AXIS FL 163 P 84 QRSd 74 QRS 75 QT 364 T 59 QTc 416 Conclusion Sinus rhythm...normal P axis, V-rate 60- 99 Probable left atrial enlargement...P >50mS, <-0.10mV V1 Physician: no stemi
--- NOTE | 2023-09-02 04:58 | ED.GENADUL_ITS ---
Discharge Plan Disposition Patient Disposition: Admit to [facility] Condition: Stable Discharge Details Chief Complaint: SOB Clinical Impression: Pneumonia Admit Date/Time: 09/02/23 08:58 Admit Provider: Brent Donnelly Attending Provider: Brent Donnelly Primary Care Provider: Jean Pierre Humphreys ED Provider: Yang Villanueva Discharge Data Discharge Date/Time-TO BE ENTERED AT DEPARTURE: 09/02/23 08:56 Medical Decision Making 63-year-old female with a past medical history of COPD, a long history of tobacco use, previous pneumothoraces, lung surgery 17 years ago for bleb repair, anemia, who presents today for evaluation of cough and shortness of breath. Patient was initially seen and assessed on 08/22, CT scan showed evidence of pneumonia she was deemed stable for discharge at that time for outpatient management and was started on azithromycin. Unfortunately after 5 days of treatment she began to get worse and came back in for reassessment. She was seen and assessed again, pneumonia appeared to be worsening, she was admitted for 3 days, did much better, completely weaned off of all oxygen, and discharged home on a tapering steroid dose, doxycycline and cefpodoxime. Patient did very well for the next 2 days, and then suddenly a few hours ago while sleeping she woke up and became very short of breath. She had a cough, and had some blood that she coughed up as well. EMS was called and upon their arrival oxygen was found to be in the mid 80s, she was wheezy, given breathing treatments and brought in for further assessment. On 6 L she was saturating well in the high 90s. She denies any chest pain whatsoever. She does admit to mild shortness of breath. She denies fever or chills. No vomiting or diarrhea. She states that she has been taking her steroid and antibiotic as prescribed. No other complaints at this time. No other modifying factors. Exam demonstrates a surprisingly well-appearing female, she is saturating at around 91% on 2 L. Lungs are surprisingly clear with no wheezes or rhonchi. No focal rales that I can appreciate. With the patient's episode of hemoptysis, I am concerned for potential change in her pneumonia versus malignancy. PE is obviously also on the differential. Symptoms appear inconsistent with ACS. EKG is benign. We will give an additional breathing treatment and steroids, we will get a CTA for comparison and reevaluation and to rule out PE, will monitor closely and reassess. [address] scan show concern for pneumonia, component of potential cavitary changes in the right upper and left upper lobes. Patient continues to need supplemental oxygen currently on 3 L saturating at 95%. With her 2 failed outpatient treatments and the inpatient stay for her pneumonia, I do feel that admission is indicated especially considering her continued oxygen demand. We will start vancomycin and Zosyn, she is already received atypical coverage with her doxycycline. This obviously appears to be relatively ineffective. Discussed the case with the hospitalist, he agrees with the plan. I have extensively reviewed the treatment plan with the patient. I have addressed all patient concerns at this time. I have also discussed the plan with the admitting ysician and they agree with the current assessment and plan and have agreed to assume responsibility for the patient. All parties demonstrate verbal understanding and agreement with our assessment and plan at this time. The documentation in this chart was dictated using [employer] dictation software. Please excuse any dictation errors. FINDINGS: Pulmonary arteries: No pulmonary embolus is appreciated. Aorta: No thoracic aortic aneurysm seen. Arterial calcifications. Trachea: Multiple foci of gas again seen adjacent to the trachea. See below for additional findings. Lungs: Secretions in the trachea and right mainstem bronchus extending into bronchi of all lobes of the right lung, with multiple opacified bronchi seen. Atelectasis of the right middle lobe, new from prior study. Cavitary changes in the right upper lobe and to a lesser degree in the left upper lobe. Nodular infiltrates in all lobes of the right lung and in the left lower lobe and to a lesser degree left upper lobe. These are increased from prior study. Pleural spaces: No pleural effusion. Heart: No pericardial effusion. Lymph nodes: Nonspecific mediastinal lymph nodes. Diaphragm: Small hiatal hernia. Liver: Subcentimeter enhancing focus in the hepatic dome, indeterminate on this examination. Consider follow-up. Adrenal glands: Adrenal thickening. Left adrenal calcifications. Bones/joints: No acute pertinent abnormality seen. Soft tissues: No acute pertinent abnormality seen. IMPRESSION: 1. No pulmonary embolus is appreciated. 2. Findings consistent with pneumonia as described above. 3. Secretions in the trachea and in bronchi throughout the right lung with atelectasis of the right middle lobe. 4. Additional findings as above. Thank you for allowing us to participate in the care of your patient. Dictated and Authenticated by: Alyson Michel MD 09/02/2023 6:14 AM Eastern Time ([place] & [place] HPI General Date/Time Provider Initiated Documentation: 09/02/23 04:57 . HPI Narrative: 63-year-old female with a past medical history of COPD, a long history of tobacco use, previous pneumothoraces, lung surgery 17 years ago for bleb repair, anemia, who presents today for evaluation of cough and shortness of breath. Patient was initially seen and assessed on 08/22, CT scan showed evidence of pneumonia she was deemed stable for discharge at that time for outpatient management and was started on azithromycin. Unfortunately after 5 days of treatment she began to get worse and came back in for reassessment. She was seen and assessed again, pneumonia appeared to be worsening, she was admitted for 3 days, did much better, completely weaned off of all oxygen, and discharged home on a tapering steroid dose, doxycycline and cefpodoxime. Patient did very well for the next 2 days, and then suddenly a few hours ago while sleeping she woke up and became very short of breath. She had a cough, and had some blood that she coughed up as well. EMS was called and upon their arrival oxygen was found to be in the mid 80s, she was wheezy, given breathing treatments and brought in for further assessment. On 6 L she was saturating well in the high 90s. She denies any chest pain whatsoever. She does admit to mild shortness of breath. She denies fever or chills. No vomiting or diarrhea. She states that she has been taking her steroid and antibiotic as prescribed. No other complaints at this time. No other modifying factors. Related Data Home Medications Medication Instructions Recorded Confirmed albuterol sulfate 90 mcg/actuation 3 puff inhalation Q4H PRN #6.7 08/30/23 09/02/23 aerosol inhaler grams cefpodoxime 200 mg tablet 400 mg (2 x 200 mg) PO Q12H #5 tabs 08/30/23 09/02/23 doxycycline hyclate 100 mg capsule 100 mg PO Q12H #5 caps 08/30/23 09/02/23 prednisone 20 mg tablet See Taper PO DAILY #5 tabs 08/30/23 09/02/23 Previous Rx's Medication Instructions Recorded albuterol sulfate 90 mcg/actuation 3 puff inhalation Q4H PRN #6.7 08/30/23 aerosol inhaler grams cefpodoxime 200 mg tablet 400 mg (2 x 200 mg) PO Q12H #5 tabs 08/30/23 doxycycline hyclate 100 mg capsule 100 mg PO Q12H #5 caps 08/30/23 prednisone 20 mg tablet See Taper PO DAILY #5 tabs 08/30/23 Allergies Allergy/AdvReac Type Severity Reaction Status Date / Time No Known Allergies Allergy Verified 09/02/23 05:14 General Stated Complaint: SOB JONY: 2 Review of Systems All systems reviewed & are unremarkable except as noted in HPI and below PFSH All Active Problems (Updated 09/03/23 @ 00:23 by Yang Villanueva DO) Nicotine use disorder (Acute) Acute respiratory failure with hypoxia (Acute) Sepsis (Acute) Pneumonia (Acute) Bronchospasm (Acute) Bronchiectasis (Acute) Thrombocytopenia (Chronic) Anemia (Chronic) Dense breasts (Acute) Pneumonia (Acute) Medical History Hypoxia Nicotine use disorder Surgical History LUNG SURGERY 1995;[facility] [place] COLLAPSED LUNG WITH REPAIRATIVE SURGERY Family History Father Heart disease Grandfather Heart disease Grandmother TB (tuberculosis) Son , 4.5 No problems noted. Son No problems noted. Son No problems noted. Social History Smoking/Tobacco Use Status: Current every day Tobacco Type: cigarettes Tobacco: How many years used: 40 Quit status: not considering quitting Second Hand Exposure: Yes Smoking risk assessment performed?: Yes Alcohol Intake: current Alcohol Intake frequency: holidays/special occasions only Drug use: Never Substance use type: does not use Household members: children Housing: house Communication Needs: Corrective Lenses Do you need help understanding health information?: Never Pets and animals: No Sexually active: No Do you think of yourself as: straight/heterosexual Current gender identity: male What is your relationship status?: never How often do you talk on the phone with friends or family?: once per week How often do you get together with friends or relatives?: once per week How often do you attend quaker or hindu services?: decline to answer Do you belong to any clubs or organized social groups?: no Panel score (0-1 are the most socially isolated patients): 0 What type of physical activity do you participate in: walking Duration: 60-90 minutes/day Frequency: daily Kenzie/Church: No preference Special kenzie needs: No Seatbelt use: always Helmet use: No 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 3.ENT: Atraumatic external nose and ears. Moist MM. Neck: Symmetric, trachea midline, No thyromegaly. 4.CVS: +S1/S2, No murmurs or gallops. Peripheral pulses 2+ and equal in all extremities. Brisk capillary refill in all extremities. 5.RESP: Unlabored respiratory effort. Clear to auscultation bilaterally. No wheezes rales or rhonchi 6.GI: Soft, Nontender/Nondistended, No hepatosplenomegaly. No guarding or rebound. 7.MSK: Normocephalic/Atraumatic, Extremities w/o deformity or ttp No cyanosis or clubbing, Normal movement of all extremities 8.Skin: Warm, Dry. No rashes or lesions. 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 Sensation grossly intact, no focal neurologic deficits. 10.Psych: (AAO) x3. Appropriate mood and affect Course Vital Signs Vital signs: Vital Signs Temperature 36.6 C 09/02/23 04:53 Pulse 94 H 09/02/23 04:53 Respiratory Rate 22 09/02/23 04:53 Blood Pressure 145/89 H 09/02/23 04:53 Pulse Oximetry 92 09/02/23 04:53 Temperature 36.6 C 09/02/23 04:53 Temperature Source Temporal Artery Scan 09/02/23 04:53 Pulse 94 H 09/02/23 04:53 Respiratory Rate 22 09/02/23 04:53 Respiratory Effort Normal 09/02/23 04:57 Blood Pressure 145/89 H 09/02/23 04:53 Pulse Oximetry 92 09/02/23 04:53 Oxygen Delivery Method Nasal Cannula 09/02/23 04:53 Oxygen Flow Rate 2 09/02/23 04:53
--- NOTE | 2023-09-02 05:00 | DI.CT_ITS ---
Exam(s) CT CHEST PE CTA EXAM: CT CHEST PE CTA CLINICAL HISTORY: Cough, hemoptysis, known pneumonia, r/o PE. TECHNIQUE: Imaging Protocol: Axial CT angiography was performed with multi-slice acquisition and mu lti-planar reconstructions as well as axial, coronal and sagittal MIP reconstructions. CONTRAST MATERIAL: Intravenous: Omnipaque 350 Contrast volume:60 ml COMPARISON: CT CT CHEST W from 08/22/2023 FINDINGS: Pulmonary Arteries: No evidence of filling defect to suggest pulmonary emboli. Tracheobronchial tree: Densities seen in right main bronchus. Opacification of multiple right-sided bronchi and bronchial thickening. New right middle lobe atelectasis. Mediastinum and Hanny: No dominant adenopathy or fluid collection. Pulmonary parenchyma: Upper lobe bulla again noted. Interval worsening right upper lobe infiltrate. Some improvement in right lower lobe infiltrate. New infiltrates seen in left lower lobe. Pleura: No effusion or pneumothorax. Heart: The heart is not dilated. No coronary artery calcifications are seen. Aorta: Thoracic aorta non-dilated. No aneurysm. No dissection. Upper abdomen: Left adrenal calcification again noted. Bones: Unremarkable for age. Tubes, Catheters, and Lines: None IMPRESSION: No evidence of pulmonary embolism. Worsening of pulmonary infiltrates. New secretions in right main bronchus and multiple branch bronchi. New right middle lobe atelectasis . RADIATION DOSE DELIVERED: Total DLP DATA REPOSITORY: All CT scans at this facility are submitted to the National Radiology Data Registry (NRDR) Dose Index Registry (DIR) with the [employer] (ACR). RADIATION OPTIMIZATION: All CT scans at this facility use at least one of these dose optimization te chniques: automated exposure control; mA and/or kV adjustment per patient size (includes targeted exa ms where dose is matched to clinical indication); or iterative reconstruction.
[2023-09-02 05:06] LABS: Abs Immature Grans 0.57 10^3/uL (0.0-0.06); Absolute Basophil Count 0.07 10^3/uL (0.0-0.2); Absolute Lymphocyte Count 3.52 10^3/uL (1.2-3.4); BE (Venous) 0 mmol/L (-2-3); Basophils % 0.4; Eosinophils % 1.6; HCO3 (Venous) 25 mmol/L (23-28); HCT 28.5 % (36.0-46.0); HGB 8.5 g/dL (11.2-15.7); Immature Grans % 3.2; Lymphocytes % 19.6; MCH 22.8 pg (27.0-33.0); MCHC 29.8 % (32.0-36.0); MCV 76 fL (80-95); MPV 9.3 fL (8.0-11.0); Neutrophils % 65.2; Nucleated RBC 0.3 % (0.0-0.3); O2 Sat (Venous) 56 %; Platelet Count 547 10^3/uL (130-400); RBC 3.73 10^6/uL (3.93-5.22); RDW 17.5 % (11.7-14.6); TCO2 (Venous) 24 mmol/L (24-29); WBC 17.98 10^3/uL (4.4-10.8); pCO2 (Venous) 45 mmHg (41-51); pH (Venous) 7.36 (7.31-7.41); pO2 (Venous) 32 mmHg
[2023-09-02 05:11] LABS: Absolute Eosinophil Count 0.29 10^3/uL (0.0-0.7); Absolute Neutrophil Count 11.72 10^3/uL (1.2-6.7)
[2023-09-02] MEDS: methylPREDNISolone SUCC 125 MG VIAL IVP (05:12)
[2023-09-02] MEDS: Albuterol/Ipratropium 3 ML UPD VIAL UPD ×2 (05:13→20:55)
[2023-09-02] MEDS: Normal Saline - Diluent 50 ML VIAL IJ (05:14)
[2023-09-02] MEDS: Omnipaque 350 MG/ML 100 ML BTL IJ (05:15)
[2023-09-02] MEDS: Normal Saline Flush 10 ML SYR IVP ×2 (05:16→12:25)
[2023-09-02 05:20] LABS: PTT Activated 22.3 sec (23.6-32.8); Prothrombin Time 10.2 sec (9.1-11.1)
[2023-09-02 05:31] LABS: ALT 26 U/L (14-59); AST 18 U/L (15-37); Albumin 3.3 g/dL (3.4-5.0); Alkaline Phosphatase 70 U/L (46-116); Anion Gap 11.1 mmol/L (3-11); BUN 18 mg/dL (7-18); Bilirubin, Total 0.2 mg/dL (0.2-1.0); CO2 25.9 mmol/L (21.0-32.0); CREATININE 0.7 mg/dL (0.55-1.02); Calcium 9.3 mg/dL (8.5-10.1); Chloride 104 mmol/L (98-107); Estimated GFR 98.34 (mL/min/1.73m2); Glucose 84 mg/dL (74-106); NT-proBNP 179 pg/mL (<300); Potassium 3.5 mmol/L (3.5-5.1); Sodium 141 mmol/L (136-145); Total Protein 6.9 g/dL (6.4-8.2); Troponin I < 50 ng/L (<or=60)
--- NOTE | 2023-09-02 06:15 | DI.VRAD_ITS ---
PROCEDURE INFORMATION: Exam: CTA Chest With Contrast Exam date and time: 09/02/2023 5:37 AM Age: 63 years old Clinical indication: Cough and shortness of breath and other: Hemoptysis; Patient HX: Cough, hemoptysis, known pneumonia, R/O pe TECHNIQUE: Imaging protocol: Computed tomographic angiography of the chest with contrast. Exam focused on the arteries. 3D rendering (Not supervised by radiologist): MIP and/or 3D reconstructed images were created by the technologist. Contrast material: OMNIPAQUE 350; Contrast volume: 60 ml; Contrast route: INTRAVENOUS (IV); COMPARISON: CT CHEST W 08/22/2023 1:51 PM FINDINGS: Pulmonary arteries: No pulmonary embolus is appreciated. Aorta: No thoracic aortic aneurysm seen. Arterial calcifications. Trachea: Multiple foci of gas again seen adjacent to the trachea. See below for additional findings. Lungs: Secretions in the trachea and right mainstem bronchus extending into bronchi of all lobes of the right lung, with multiple opacified bronchi seen. Atelectasis of the right middle lobe, new from prior study. Cavitary changes in the right upper lobe and to a lesser degree in the left upper lobe. Nodular infiltrates in all lobes of the right lung and in the left lower lobe and to a lesser degree left upper lobe. These are increased from prior study. Pleural spaces: No pleural effusion. Heart: No pericardial effusion. Lymph nodes: Nonspecific mediastinal lymph nodes. Diaphragm: Small hiatal hernia. Liver: Subcentimeter enhancing focus in the hepatic dome, indeterminate on this examination. Consider follow-up. Adrenal glands: Adrenal thickening. Left adrenal calcifications. Bones/joints: No acute pertinent abnormality seen. Soft tissues: No acute pertinent abnormality seen. IMPRESSION: 1. No pulmonary embolus is appreciated. 2. Findings consistent with pneumonia as described above. 3. Secretions in the trachea and in bronchi throughout the right lung with atelectasis of the right middle lobe. 4. Additional findings as above. Dictated and Authenticated by: Alyson Michel MD. Ordering:HIGINIO Soria MD
--- NOTE | 2023-09-02 06:46 | HPE_ITS ---
Date of service: 09/02/23 Time of Service: 13:37 Assessment and Plan Assessment and plan (1) Sepsis: Status: Acute Assessment and plan: -patient meets sepsis criteria with HR >90, WBC 17, and PNA as source of infection -does not meet severe criteria as there is no sign of end organ damage or elevated lactic -f/u AM CBC -continue zosyn and zyvox Qualifiers: Acute respiratory failure type: with hypoxia Sepsis acute organ dysfunction status: with acute organ dysfunction Sepsis type: sepsis due to unspecified organism Severe sepsis acute organ dysfunction type: acute respiratory failure Severe sepsis shock status: without septic shock Qualified Code(s): A41.9 - Sepsis, unspecified organism; R65.20 - Severe sepsis without septic shock; J96.01 - Acute respiratory failure with hypoxia (2) Pneumonia: Status: Acute Assessment and plan: -previously admitted with CAP from 08/27 to 08/30 -new CT findings as noted above with worsening findings -discussed with Pulmonology; NPO at midnight and plan for bronchoscopy tomorrow 09/03 -f/u urine histo, blasto, fungitell, aspergillus antigen Qualifiers: Laterality: bilateral Lung location: unspecified part of lung P neumonia type: due to unspecified organism Qualified Code(s): J18.9 - Pneumonia, unspecified organism (3) Acute respiratory failure with hypoxia: Status: Acute Assessment and plan: -likely due to PNA as noted above -continue NC, wean as tolerate with goal >92% History of Present Illness History of Present Illness Chief Complaint: shortness of breath Narrative: 63-year-old female with a past medical history of 45 years of tobacco use, and 3 previous admissions for community-acquired pneumonia most recently here at [facility] from 08/27 until 08/30 presents back to the emergency department with sudden onset of shortness of breath. Patient states that after recently being discharged she had significant treatment of her symptoms while at home and was compliant with her medication regimen. However, early in the morning of 09/02/2023 she had a sudden onset of shortness of breath prompted her to call EMS reportedly found the patient to be hypoxic in the low 80s upon arrival which improved with 2 L nasal cannula. Patient denies any headache, lightheadedness, dizziness, nausea, vomiting, chest pain, fevers. In the emergency department she remained on 2 L nasal cannula to maintain oxygen saturation greater than 92%, she had a pulse of 94, blood pressure 145/89 and initial respiratory rate of 26. CBC showed an increase of white blood cell count of 17.9 which is up from 11 on day of discharge, as well as a thrombocytosis with a platelet count of 547 also up from previous discharge today. BMP was unremarkable, lactic acid was within normal limits, UA was negative, and chest CT showed atelectasis of the right middle lobe, cavitary changes in the right upper lobe to a lesser extent in the left upper lobe, nodular infiltrates in all lobes of the right lung and in the left lower lung as well as some in the left upper lobe which were all increased as compared to previous study. Patient was started on Zosyn and linezolid in the emergency room physician paged hospitalist for admission for patient with worsening multifocal pneumonia presumed to be hospital-acquired with acute hypoxic respiratory failure. Review of Systems All systems reviewed & are unremarkable except as noted in HPI and below PFSH All Active Problems (Updated 09/02/23 @ 13:48 by Brent Donnelly MD) Nicotine use disorder (Acute) Acute respiratory failure with hypoxia (Acute) Sepsis (Acute) Pneumonia (Acute) Bronchospasm (Acute) Bronchiectasis (Acute) Thrombocytopenia (Chronic) Anemia (Chronic) Dense breasts (Acute) Pneumonia (Acute) Medical History Hypoxia Nicotine use disorder Surgical History LUNG SURGERY 1995;[facility] [place]; COLLAPSED LUNG WITH REPAIRATIVE SURGERY Family History Father Heart disease Grandfather Heart disease Grandmother TB (tuberculosis) Son , 4.5 No problems noted. Son No problems noted. Son No problems noted. Social History Smoking/Tobacco Use Status: Current every day Tobacco Type: cigarettes Tobacco: How many years used: 40 Quit status: not considering quitting Second Hand Exposure: Yes Smoking risk assessment performed?: Yes Alcohol Intake: current Alcohol Intake frequency: holidays/special occasions only Drug use: Never Substance use type: does not use Household members: children Housing: house Communication Needs: Corrective Lenses Do you need help understanding health information?: Never Pets and animals: No Sexually active: No Do you think of yourself as: straight/heterosexual Current gender identity: male What is your relationship status?: never How often do you talk on the phone with friends or family?: once per week How often do you get together with friends or relatives?: once per week How often do you attend latter day or congregation services?: decline to answer Do you belong to any clubs or organized social groups?: no Panel score (0-1 are the most socially isolated patients): 0 What type of physical activity do you participate in: walking Duration: 60-90 minutes/day Frequency: daily Kenzie/Christianity: No preference Special kenzie needs: No Seatbelt use: always Helmet use: No 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 Do you feel safe at home: Yes Do you feel safe in your relationship?: Yes Meds Allergies and Home Medications Allergies Allergy/AdvReac Type Severity Reaction Status Date / Time No Known Allergies Allergy Verified 09/02/23 05:14 Home Medications Medication Instructions Recorded Confirmed Type albuterol sulfate 90 mcg/actuation 3 puff inhalation Q4H PRN #6.7 08/30/23 09/02/23 Rx aerosol inhaler grams cefpodoxime 200 mg tablet 400 mg (2 x 200 mg) PO Q12H #5 tabs 08/30/23 09/02/23 Rx doxycycline hyclate 100 mg capsule 100 mg PO Q12H #5 caps 08/30/23 09/02/23 Rx prednisone 20 mg tablet See Taper PO DAILY #5 tabs 08/30/23 09/02/23 Rx Exam Narrative Exam Narrative: Acutely ill-appearing older female laying in bed in no acute distress with 2 L nasal cannula in place, AOx4, heart RRR, lungs with diffuse crackles throughout, abdomen soft, non-tender, non-distended Results Labs 09/02/23 05:00 09/02/23 05:00 Labs: Laboratory Results - last 24 hr 09/02/23 05:00 WBC 17.98 H RBC 3.73 L Hgb 8.5 L Hct 28.5 L MCV 76 L MCH 22.8 L MCHC 29.8 L RDW 17.5 H Plt Count 547 H MPV 9.3 Immature Gran % 3.2 Neutrophils % 65.2 Lymphocytes % 19.6 Monocytes % 10.0 Eosinophils % 1.6 Basophils % 0.4 Nucleated RBC % 0.3 Absolute Neutrophils 11.72 H Absolute Lymphocytes 3.52 H Absolute Monocytes 1.80 H Absolute Eosinophils 0.29 Absolute Basophils 0.07 PT 10.2 INR 1.0 APTT 22.3 L VBG pH 7.36 VBG pCO2 45 VBG pO2 32 VBG HCO3 25 VBG Total CO2 24 VBG O2 Saturation 56 VBG Base Excess 0 Sodium 141 Potassium 3.5 Chloride 104 Carbon Dioxide 25.9 Anion Gap 11.1 H BUN 18 Creatinine 0.7 Est GFR (CKD-EPI 2020) 98.34 Glucose 84 Calcium 9.3 Total Bilirubin 0.2 AST 18 ALT 26 Alkaline Phosphatase 70 Troponin I < 50 NT-Pro-B Natriuret Pep 179 Total Protein 6.9 Albumin 3.3 L Last Vital Signs Temp 97.9 F 09/02/23 04:53 Pulse 93 H 09/02/23 06:40 Resp 17 09/02/23 06:41 BP 142/76 H 09/02/23 06:40 Pulse Ox 93 09/02/23 06:41 Time Spent Time spent with Patient: >75 minutes (80min) Time was spent: preparing to see the patient(eg.review tests), obtaining and/or reviewing separately otained hiistory, ordering medications,tests, procedures, referring, communicating with other health rn progressive care unit, indepentently interpreting results, counseling the patient and care coordination
[2023-09-02] MEDS: PIPERACILLIN/TAZO 3.375 GM in Normal Saline 50 ML IVPB (06:54)
[2023-09-02] MEDS: VANCOMYCIN/WATER (PEG) 1 GM/200 ML BAG IVPB (07:20)
[2023-09-02 07:54] LABS: COVID-19 PCR Negative (Negative); Influenza A PCR Negative (Negative); Influenza B PCR Negative (Negative); RSV PCR Negative (Negative)
[2023-09-02 07:55] LABS: Source Nasopharynx
[2023-09-02] MEDS: Enoxaparin 40 MG/0.4 ML SYR SC (09:55)
[2023-09-02] MEDS: PIPERACILLIN/TAZO 4.5 GM in Normal Saline 100 ML IVPB ×3 (12:25→23:37)
--- NOTE | 2023-09-02 13:46 | W.PULMCON ---
General Date Of Service Date of service: 09/02/23 Time of Service: 13:46 Reason for Consult: Non-resolving pneumonia Assessment and Plan Assessment and plan (1) Pneumonia: Status: Acute Qualifiers: Laterality: bilateral Lung location: unspecified part of lung Pneumonia type: due to unspecified organism Qualified Code(s): J18.9 - Pneumonia, unspecified organism (2) Acute respiratory failure with hypoxia: Status: Acute (3) Nicotine use disorder: Status: Acute Assessment and plan: This is a 63 yo admitted after treatment failure for pneumonia. She does not have any glaring risk factors for fungal, or other opportunistic infections, but in the setting of treatment failure x2 for bacterial pneumonia, alternative etiologies should be considered. Fungal pneumonia is certainly possible, or alternatively an inflammatory process such as an organizing pneumonia. I do recommend a bronchoscopy to assess the etiology. If the bronchoscopy returns bland and there are no other labs that point to fungal, I would favor treating her with steroids for [employer]. Non-resolving pneumonia - urine antigens for histo and blasto - prior antigens for legionella and strep negative - Fungitell, aspergillus antigen - MRSA nares - continue antibiotics for now - Duonebs QID - bronchoscopy scheduled for tomorrow morning at 7:30 History of Present Illness Narrative: This is a 63 yo who was recently admitted (08/27-08/30) for CAP and acute hypoxic respiratory failure. She was treated with ceftriaxone and doxycycline and seemed to improve with no further O2 needs and symptoms improvement. Early this morning she developed acute dyspnea, once again was hypoxic (requiring 2 LPM) and now a progressively worsening chest CT. She states she feels breathless, has been wheezing and coughing. She has a 45 pack year smoking history and smokes around 1 ppd currently. She has no true exposures that she can think of, but her son who she lives with works at a [employer] and does some into contact with sawdust and muschrooms (from tree growth). She denies marijuana smoking. She denies ill contacts. Has no risk factors for TB and does not think she has come into contact with anymore who has TB. She denies immunosuppression. Denies rashes, abdominal pain, diarrhea, nausea or vomiting. Review of Systems All systems reviewed & are unremarkable except as noted in HPI and below PFSH All Active Problems (Updated 09/02/23 @ 13:48 by Brent Donnelly MD) Nicotine use disorder (Acute) Acute respiratory failure with hypoxia (Acute) Sepsis (Acute) Pneumonia (Acute) Bronchospasm (Acute) Bronchiectasis (Acute) Thrombocytopenia (Chronic) Anemia (Chronic) Dense breasts (Acute) Pneumonia (Acute) Medical History Hypoxia Nicotine use disorder Surgical History LUNG SURGERY 1995;[facility] – [place]; COLLAPSED LUNG WITH REPAIRATIVE SURGERY Family History Father Heart disease Grandfather Heart disease Grandmother TB (tuberculosis) Son , 4.5 No problems noted. Son No problems noted. Son No problems noted. Social History Smoking/Tobacco Use Status: Current every day Tobacco Type: cigarettes Tobacco: How many years used: 40 Quit status: not considering quitting Second Hand Exposure: Yes Smoking risk assessment performed?: Yes Alcohol Intake: current Alcohol Intake frequency: holidays/special occasions only Drug use: Never Substance use type: does not use Household members: children Housing: house Communication Needs: Corrective Lenses Do you need help understanding health information?: Never Pets and animals: No Sexually active: No Do you think of yourself as: straight/heterosexual Current gender identity: male What is your relationship status?: never How often do you talk on the phone with friends or family?: once per week How often do you get together with friends or relatives?: once per week How often do you attend methodist or pentecostalism services?: decline to answer Do you belong to any clubs or organized social groups?: no Panel score (0-1 are the most socially isolated patients): 0 What type of physical activity do you participate in: walking Duration: 60-90 minutes/day Frequency: daily Kenzie/Zoroastrianism: No preference Special kenzie needs: No Seatbelt use: always Helmet use: No Drive intox or ride w/intox food service driver: No Do you feel safe at home: Yes Do you feel safe in your relationship?: Yes Visit Medication and Allergies Active Medications Generic Name Dose Route Start Last Admin Trade Name Freq PRN Reason Stop Dose Admin Acetaminophen 0 mg 09/02/23 08:58 Acetaminophen 325 Mg Tab PO Q4H PRN PRN Albuterol Sulfate 3 puff 09/02/23 09:00 Albuterol Hfa 8 Gm 60 Puff Inh IH Q4H PRN PRN Device 1 each 09/02/23 08:58 Inhaler, Assist Device DIRECTED ANÍBAL Docusate Sodium 100 mg 09/02/23 08:58 Docusate Sodium 100 Mg Cap PO TID PRN PRN Enoxaparin Sodium 40 mg 09/02/23 10:00 09/02/23 09:55 Enoxaparin 40 Mg/0.4 Ml Syr SC 40 mg Q24H ANÍBAL Administration Piperacillin Sod/Tazobactam 100 mls @ 200 mls/hr 09/02/23 12:00 09/02/23 13:44 Sod 4.5 gm/ Sodium Chloride IVPB Infused Q6H ANÍBAL Infusion Vancomycin/PEG/NADA/Lysine/Water 750 mg in 150 mls @ 150 mls/hr 09/02/23 18:00 Vancocin Injection IV Q12H [facility] IV Miscellaneous Supplies 1 each 09/02/23 08:58 Iv Access IV DIRECTED [facility] Iohexol 100 ml 09/02/23 05:15 09/02/23 05:15 Omnipaque 350 Mg/Ml 100 Ml Btl IJ 10/02/23 23:59 60 ml DIRECTED ANÍBAL Administration Polyethylene Glycol 17 gm 09/02/23 08:58 Polyethylene Glycol 3350 17 Gm Packet PO DAILY PRN PRN Constipation Sodium Chloride 50 ml 09/02/23 05:15 09/02/23 05:14 Normal Saline - Diluent 50 Ml Vial IJ 50 ml .FOR DI USE ANÍBAL Administration Sodium Chloride 0 ml 09/02/23 05:16 09/02/23 12:25 Normal Saline Flush 10 Ml Syr IVP 10 ml PRN PRN Administration Sodium Chloride 0 ml 09/02/23 08:58 Normal Saline Flush 10 Ml Syr IVP PRN PRN Allergies No Known Allergies Allergy (Verified 09/02/23 05:14) Exam Narrative Exam Narrative: Gen: NAD, normal respiratory effort, thin HENT: PERRL, nasal turbinates normal without erythema or inflammation, moist oral mucosa, Mallampati 2, No LAD or JVD Chest: No respiratory distress, normal appearance of chest, intermitent scattered wheezing, L>R. Heart: regular rate and rhythym, no murmurs, rubs or gallops Abdomen: Non-distended, soft, non tender Extremities: No clubbing, edema, cyanosis, rashes Neuro: AAOx3 , non focal Psych: cooperative, appropriate mental affect Results Last Vital Signs Temp 36.3 C L 09/02/23 12:06 Pulse 77 09/02/23 12:06 Resp 18 09/02/23 12:06 BP 115/64 09/02/23 12:06 Pulse Ox 94 09/02/23 12:06 Labs 09/02/23 05:00 09/02/23 05:00 Labs: Laboratory Results - last 24 hr 09/02/23 09/02/23 05:00 07:02 WBC 17.98 H RBC 3.73 L Hgb 8.5 L Hct 28.5 L MCV 76 L MCH 22.8 L MCHC 29.8 L RDW 17.5 H Plt Count 547 H MPV 9.3 Immature Gran % 3.2 Neutrophils % 65.2 Lymphocytes % 19.6 Monocytes % 10.0 Eosinophils % 1.6 Basophils % 0.4 Nucleated RBC % 0.3 Absolute Neutrophils 11.72 H Absolute Lymphocytes 3.52 H Absolute Monocytes 1.80 H Absolute Eosinophils 0.29 Absolute Basophils 0.07 PT 10.2 INR 1.0 APTT 22.3 L VBG pH 7.36 VBG pCO2 45 VBG pO2 32 VBG HCO3 25 VBG Total CO2 24 VBG O2 Saturation 56 VBG Base Excess 0 Sodium 141 Potassium 3.5 Chloride 104 Carbon Dioxide 25.9 Anion Gap 11.1 H BUN 18 Creatinine 0.7 Est GFR (CKD-EPI 2020) 98.34 Glucose 84 Calcium 9.3 Total Bilirubin 0.2 AST 18 ALT 26 Alkaline Phosphatase 70 Troponin I < 50 NT-Pro-B Natriuret Pep 179 Total Protein 6.9 Albumin 3.3 L COVID-19 Source Nasopharynx SARS-CoV-2 (PCR) Negative Influenza Type A (PCR) Negative Influenza Type B (PCR) Negative RSV (PCR) Negative
[2023-09-02 16:12] LABS: MRSA PCR Negative (Negative)
[2023-09-02] MEDS: VANCOMYCIN/WATER (PEG) 750 MG/150 ML BAG 150 MG IV (18:39)
[2023-09-02 20:54] LABS: Procalcitonin < 0.1 ng/mL
[2023-09-03] VITALS (16 sets, daily range): BP systolic 108–131; BP diastolic 58–78; PULSE 71–104; RESP 12–26; TEMP 31–37; O2SAT 79–98; BMI 17.1
[2023-09-03] MEDS: PIPERACILLIN/TAZO 4.5 GM in Normal Saline 100 ML IVPB ×2 (05:47→12:36)
[2023-09-03] MEDS: VANCOMYCIN/WATER (PEG) 750 MG/150 ML BAG 150 MG IV (05:47)
[2023-09-03] MEDS: Normal Saline Flush 10 ML SYR IVP (05:48)
--- NOTE | 2023-09-03 07:01 | ANES.PREOP_ITS ---
General Info Date of Service Date Performed: 09/03/23 Height: 5 ft 9 in Weight: 52.5 kg Body Mass Index (BMI): 17.1 Surgical Procedure: Operation Date: 09/03/23 07:40 Proposed Procedure Side Surgeon p Bronchoscopy w/KELTON Grijalva MD Meds Allergies and Home Medications Allergies Allergy/AdvReac Type Severity Reaction Status Date / Time No Known Allergies Allergy Verified 09/02/23 05:14 Home Medication Medication Instructions Recorded albuterol sulfate 90 mcg/actuation 3 puff inhalation Q4H PRN #6.7 08/30/23 aerosol inhaler grams cefpodoxime 200 mg tablet 400 mg (2 x 200 mg) PO Q12H #5 tabs 08/30/23 doxycycline hyclate 100 mg capsule 100 mg PO Q12H #5 caps 08/30/23 prednisone 20 mg tablet See Taper PO DAILY #5 tabs 08/30/23 Current Visit Medications: Current Medications Generic Name Dose Route Start Last Admin Trade Name Freq PRN Reason Stop Dose Admin Acetaminophen 0 mg 09/02/23 08:58 Acetaminophen 325 Mg Tab PO Q4H PRN PRN Albuterol Sulfate 3 puff 09/02/23 09:00 Albuterol Hfa 8 Gm 60 Puff Inh IH Q4H PRN PRN Albuterol/Ipratropium 3 ml 09/02/23 16:00 09/02/23 20:55 Albuterol/Ipratropium 3 Ml Upd Vial UPD 3 ml QID ANÍBAL Administration Device 1 each 09/02/23 08:58 Inhaler, Assist Device MC DIRECTED ANÍBAL Docusate Sodium 100 mg 09/02/23 08:58 Docusate Sodium 100 Mg Cap PO TID PRN PRN Enoxaparin Sodium 40 mg 09/02/23 10:00 09/02/23 09:55 Enoxaparin 40 Mg/0.4 Ml Syr SC 40 mg Q24H ANÍBAL Administration Piperacillin Sod/Tazobactam 100 mls @ 200 mls/hr 09/02/23 12:00 09/03/23 05:47 Sod 4.5 gm/ Sodium Chloride IVPB 200 mls/hr Q6H ANÍBAL Administration Vancomycin/PEG/NADA/Lysine/Water 750 mg in 150 mls @ 150 mls/hr 09/02/23 18:00 09/03/23 05:47 Vancocin Injection IV 150 mls/hr Q12H ANÍBAL Administration IV Miscellaneous Supplies 1 each 09/02/23 08:58 Iv Access IV DIRECTED ANÍBAL Polyethylene Glycol 17 gm 09/02/23 08:58 Polyethylene Glycol 3350 17 Gm Packet PO DAILY PRN PRN Constipation Sodium Chloride 0 ml 09/02/23 08:58 09/03/23 05:48 Normal Saline Flush 10 Ml Syr IVP 10 ml PRN PRN Administration PFSH Active Problems Active Problems: Problem Status Onset Code Nicotine use disorder F17.200 Acute respiratory failure with hypoxia J96.01 Sepsis A41.9 Pneumonia J18.9 Bronchospasm J98.01 Bronchiectasis J47.9 Thrombocytopenia D69.6 Anemia D64.9 Dense breasts R92.2 Pneumonia J18.9 Medical History Medical History Hypoxia Nicotine use disorder Surgical History Surgical History LUNG SURGERY 1995;[facility] – [place]; COLLAPSED LUNG WITH REPAIRATIVE SURGERY Tobacco Smoking/Tobacco Use Status: Current every day Tobacco Type: cigarettes Second hand exposure: Yes Alcohol Alcohol Intake: current Alcohol intake frequency: holidays/special occasions only Substance Use Substance use: Never Substance use type: does not use Vital Signs and Lab Results Vital Signs Most Recent Vital Signs in EMR: Most Recent Vital Signs Temp Pulse Resp BP Pulse Ox 37.0 C 78 18 118/70 94 09/03/23 04:07 09/03/23 04:07 09/03/23 04:07 09/03/23 04:07 09/03/23 04:24 Lab Results 09/02/23 05:00 09/02/23 05:00 Blood Type / Crossmatch: 2 Patient ABO/Rh O Negative 08/22/23 Antibody Screen NEGATIVE 08/22/23 Complete Blood Count: 2 White Blood Count 17.98 10^3/uL (4.4-10.8) H 09/02/23 05:00 Red Blood Count 3.73 10^6/uL (3.93-5.22) L 09/02/23 05:00 Hemoglobin 8.5 g/dL (11.2-15.7) L 09/02/23 05:00 Hematocrit 28.5 % (36.0-46.0) L 09/02/23 05:00 Platelet Count 547 10^3/uL (130-400) H 09/02/23 05:00 Venous Blood Lactate 1.1 mmol/L (0.6-1.4) 08/27/23 06:52 Complete Metabolic Panel: 2 Sodium 141 mmol/L (136-145) 09/02/23 05:00 Potassium 3.5 mmol/L (3.5-5.1) 09/02/23 05:00 Chloride 104 mmol/L (98-107) 09/02/23 05:00 Carbon Dioxide 25.9 mmol/L (21.0-32.0) 09/02/23 05:00 BUN 18 mg/dL (7-18) 09/02/23 05:00 Creatinine 0.7 mg/dL (0.55-1.02) 09/02/23 05:00 Est GFR (CKD-EPI 2020) 98.34 (mL/min/1.73m2) 09/02/23 05:00 Magnesium 2.0 mg/dL (1.8-2.4) 08/28/23 06:20 Calcium 9.3 mg/dL (8.5-10.1) 09/02/23 05:00 Albumin 3.3 g/dL (3.4-5.0) L 09/02/23 05:00 Glucose 84 mg/dL (74-106) 09/02/23 05:00 Liver Function Panel: 2 Alanine Aminotransferase (ALT/SGPT) 26 U/L (14-59) 09/02/23 05: 00 Aspartate Amino Transf (AST/SGOT) 18 U/L (15-37) 09/02/23 05:00 Coagulation Panel: 2 INR International Normalized Ratio 1.0 (0.9-1.1) 09/02/23 05:0 0 Prothrombin Time 10.2 sec (9.1-11.1) 09/02/23 05:00 Activated Partial Thromboplast Time 22.3 sec (23.6-32.8) L 09/02/23 05:00 Cardiac Panel: 2 Troponin I < 50 ng/L (<or=60) 09/02/23 NT-Pro-B Natriuret Pep 179 pg/mL (<300) 09/02/23 Arterial Blood Gas: 2 No Data to Display Venous Blood Gas: 2 Venous Blood pH 7.36 (7.31-7.41) 09/02/23 05:00 Venous Blood Partial Pressure O2 32 mmHg 09/02/23 05:00 Venous Blood Partial Pressure CO2 45 mmHg (41-51) 09/02/23 05:0 0 Venous Blood Oxygen Saturation 56 % 09/02/23 05:00 Venous Blood HCO3 25 mmol/L (23-28) 09/02/23 05:00 Venous Blood Base Excess 0 mmol/L (-2-3) 09/02/23 05:00 Venous Blood Total Carbon Dioxide 24 mmol/L (24-29) 09/02/23 05 :00 Pancreas Panel: 2 No Data to Display Thyroid Panel: 2 No Data to Display Infectious Disease: 2 Coronavirus (COVID-19)(PCR) Negative (Negative) 09/02/23 07:02 Coronavirus 2019 Source Nasopharynx 09/02/23 07:02 Influenza Virus Type A (PCR) Negative (Negative) 09/02/23 07:0 2 Influenza Virus Type B (PCR) Negative (Negative) 09/02/23 07:0 2 Respiratory Syncytial Virus (PCR) Negative (Negative) 09/02/23 07:02 Blood Cultures: 2 No Data to Display Toxicology Panel: 2 No Data to Display Imaging and Studies Imaging and Studies Study information below may be from another EMR and interpreted by another provider. Please see original notes in EMR for more complete details. EKG Summary: DATE/TIME OF SERVICE: 09/02/23 0501 : 1960 PERFORMING LOCATION: ER APPROVED REPORT Exam: Resting ECG Reason for Exam: SOB Patient Location: E HR:79 bpm ECG Measurements Heart Rate 79 AXIS AR 163 P 84 QRSd 74 QRS 75 QT 364 T59 QTc 416 Conclusion Sinus rhythm...normal P axis, V-rate 60- 99 Probable left atrial enlargement...P >50mS, <-0.10mV V1 Anesthesia Assessment and Plan Anesthesia History Personal History: No History of Anesthesia Complications Family History: No Family History of Anesthesia Complications Exercise Tolerance Exercise Tolerance: Metabolic Equivalents<4 Pertinent Negatives Pertinent Negatives: No Symptoms of GERD and No Major Cardiovascular Symptoms or Complaints Cardiac & Pulmonary Exam Cardiac Exam: Normal S1/S2 Heart Sounds Pulmonary Exam: Clear Bilateral Breath Sounds Implantable Cardiac Device Does patient have a Pacemaker or an ICD?: No Airway Exam Known Difficult Airway: No Mallampati Class: 3 Mouth Opening: Narrow (< 3cm) Thyromental Distance: Greater than 3 cm Neck Range of Motion: Full ROM Neck Circumference: Normal Teeth Condition: Generalized Poor Dentition ASA Classification ASA Score: ASA 4 Emergency Case?: No NPO Status NPO Status: NPO Clears >2 hours, Solids >8 hours Anesthesia Plan Resuscitation Status: Full Code Anesthesia Technique: General Anesthesia Airway Planned: Endotracheal Tube Monitors Used: Standard Monitors Preoperative Comments:: 09/02:This is a 63 yo who was recently admitted (08/27- 08/30) for CAP and acute hypoxic respiratory failure. She was treated with ceftriaxone and doxycycline and seemed to improve with no further O2 needs and symptoms improvement. Early this morning she developed acute dyspnea, once again was hypoxic (requiring 2 LPM) and now a progressively worsening chest CT.
[2023-09-03 07:27] LABS: HGB 7.3 g/dL (11.2-15.7); MCH 23.5 pg (27.0-33.0); MCHC 30.4 % (32.0-36.0); MCV 77 fL (80-95); MPV 9.8 fL (8.0-11.0); Platelet Count 497 10^3/uL (130-400); RDW 19.3 % (11.7-14.6); WBC 17.65 10^3/uL (4.4-10.8)
[2023-09-03] MEDS: Lactated Ringers 1,000 ML 30 ML IV (07:32)
--- NOTE | 2023-09-03 07:51 | PAPNONF_PTH ---
PATIENT: Bear Stiles LOC: U#:[id number] AGE/SX: 63/F ROOM: RE09/02/[address]: Brent Donnelly MD : 1960 BED: A DIS: 09/03/2023 SPEC #: [id number] RECD: 09/03/23 12:44 STATUS: ABRAHAM REQ #: [id number] SONIA: 09/03/23 07:[address]: Brent Donnelly DEPT: [facility] Cytology RECD BY: Adela Lagos ENTERED: 09/03/23 12:45 SP TYPE: MIESHA ZHENG DR: MD Jean Pierre Canchola MD Tissues: 1 - BODY FLUID CYTO(NOT S/U/N/EM)[facility] Procedures: BODY FLUID CYTO(NOT SPU/UR/NIP/ENDOM)[facility] Comments: [id number] (REFRIGERATED)
[2023-09-03 07:53] LABS: Anion Gap 11.3 mmol/L (3-11); BUN 9 mg/dL (7-18); CO2 23.7 mmol/L (21.0-32.0); CREATININE 0.9 mg/dL (0.55-1.02); Calcium 8.7 mg/dL (8.5-10.1); Chloride 106 mmol/L (98-107); Estimated GFR 72.73 (mL/min/1.73m2); Glucose 90 mg/dL (74-106); Magnesium 1.9 mg/dL (1.8-2.4); Potassium 3.5 mmol/L (3.5-5.1); Sodium 141 mmol/L (136-145)
--- NOTE | 2023-09-03 08:38 | W.PM.OP ---
Date of service: 09/03/23 Time of Service: 07:30 Operative Note Operative Note PRE-OP DIAGNOSIS: Non-resolving pneumonia POST-OP DIAGNOSIS: other (Endobronchial mass) Refer to Anesthesia Record Procedure Description: Bronchoscopy Indication:Non resolving pneumonia Procedure performed: Flexible bronchoscopy with BAL and washings Sedation plan: General Informed consent was obtained after the risks and benefits or the procedure were discussed. Anesthesia sedated and intubated the patient without issue. A proper and complete OR compliant time out was performed. The therapeutic 6.2mm Olympus bronchoscope was inserted through the endotracheal tube. The bronchoscope was inserted into the airways. The trachea was midline and without lesion or injury. The mucosa appeared normal and there were no signs of tracheomalacia. The janis was sharp. Present in the right upper lobe take off was a large endobronchial mass causing complete obstruction to the RUL. It was grossly bloody and friable appearing (as seen in photos) so I did not attempt to go past this lesion out of worry of bleeding. The bronchus intermedius also had a large mass which occupied 90% of the airway lumen. I did advance past this mass only to see a significant pool of older appearing blood. There was some mucus present which I did gently suction, however this revealed extension of the mass. I was unable to visualize the RML take off, the RLL or the RUL. The left lung has grossly patent airways with some blood mixed with secretions which I did suction. A bronchoalveolar lavage was performed in the CARMEL. A total of 60cc of saline was administered with a return of 8cc. The fluid was slightly cloudy in appearance. Repeat attempts at BAL were aborted due to bleeding, which was controlled with cold saline. The bronchoscope was then removed and the case terminated. The patient was taken to PACU in stable condition. She is requiring higher O2 requirements and so I do recommend HFNC and ICU placement, particularly given the high risk of hemoptysis. If massive hemoptysis does occur, I recommend nebulized TXA and to call me. Samples collected:CARMEL BAL, bronchial washings Testing ordered: cell diff, cultures, cytopathology Complications: Post operative hypoxia Pictures: Francheska Grijalva MD Pulmonary & Critical Care Medicine
--- NOTE | 2023-09-03 09:42 | W.ANESPOSTOP ---
Postoperative Evaluation Date, Time and Location Date Performed: 09/03/23 Time Performed: 09:42 Patient Location: PACU Vital Signs Most Recent Imported Vital Signs: Most Recent Vital Signs Temp Pulse Resp BP Pulse Ox 36.7 C 72 15 110/58 L 96 09/03/23 09:30 09/03/23 09:30 09/03/23 09:30 09/03/23 09:30 09/03/23 09:30 Pain Score Most Recent Pain Score: Most Recent Pain Score Pain Level 0 09/03/23 09:30 Assessment Mental Status: Awake (Alert & Oriented to Patient Baseline) Airway and Respiratory Function: Abnormal Respiratory exam (See explanation) (Requires 60LPM at 80% FiO2 to maintain SpO2 in 90's. Surgeon aware and planning transfer for further anticipated care needed. Pt. states breathing is ok.) Cardiovascular Function: Hemodynamically Stable Hydration Status: Adequately Hydrated Nausea & Vomiting: No Nausea or Vomiting Pain: Pt. Denies Any Pain Peripheral Nerve Block: Patient did not receive a nerve block
--- NOTE | 2023-09-03 10:32 | PDOC.CMIN ---
Date of service: 09/03/23 Time of Service: 10:32 Care Management Initial Assmt Initial Assessment REASON FOR HOSPITALIZATION:: sepsis PREVIOUS FUNCTIONAL STATUS/SOCIAL/FAMILY SUPPORTS:: Bear lives in a single family house in [place] with one of her sons, Haris. She is currently employed at [employer] where she has worked for the past 10 years. Bear has another son, Dakota, who lives just down the street from her. Bear shared that she has a strong support system. She is close to her frzvncb-hm-rha who she says is just like a brother to her. She also has a nephew Jasson who is very supportive as well as many friends, coworkers and neighbors. Bear also communicates regularly with her mother and sister in [place]. She does not drive but state she has many people who help her with transportation and shopping. CURRENT FUNCTIONAL STATUS:: Bear was lying in bed about to be transported to [facility] when CM met with her. She had a bronchoscopy this morning which showed a mass in her right lung that it occlusing almost the entire RUL. Emergent transfer was requested. ADVANCE DIRECTIVES:: none on file Has patient been provided with info about the portal/API?: Yes Did the patient sign up for the portal?: No CODE STATUS:: Full Code INSURANCE COVERAGE / FINANCIAL ISSUES:: BC/BS out of state CURRENT HOME/COMMUNITY SERVICES/EQUIPMENT:: none PRIMARY CARE PHYSICIAN:: Jean Pierre Humphreys POTENTIAL DISCHARGE NEEDS:: possible transfer to [facility] PATIENT/FAMILY EDUCATION NEEDS:: Review of discharge instructions including limitations, activity, medications, follow up plan, discuss Ask Me Three ANTICIPATED BARRIERS TO DISCHARGE:: bed availability at [facility] TRANSPORTATION:: via private vehicle vs EMS depending on disposition PLAN:: Bear will be transferred to [facility]. She had a bronchoscopy this morning which showed a large mass occluding the upper lobe of her right lung. She will follow up with providers and plan of care and transport with EMS. PFSH All Active Problems (Updated 09/03/23 @ 12:02 by Brent Donnelly MD) Nicotine use disorder (Acute) Acute respiratory failure with hypoxia (Acute) Sepsis (Acute) Pneumonia (Acute) Bronchospasm (Acute) Bronchiectasis (Acute) Thrombocytopenia (Chronic) Anemia (Chronic) Dense breasts (Acute) Pneumonia (Acute) Medical History Hypoxia Nicotine use disorder Surgical History LUNG SURGERY 1995;[facility] [place]; COLLAPSED LUNG WITH REPAIRATIVE SURGERY Family History Father Heart disease Grandfather Heart disease Grandmother TB (tuberculosis) Son , 4.5 No problems noted. Son No problems noted. Son No problems noted. Social History Smoking/Tobacco Use Status: Current every day Tobacco Type: cigarettes Tobacco: How many years used: 40 Quit status: not considering quitting Second Hand Exposure: Yes Smoking risk assessment performed?: Yes Alcohol Intake: current Alcohol Intake frequency: holidays/special occasions only Drug use: Never Substance use type: does not use Household members: children Housing: house Communication Needs: Corrective Lenses Do you need help understanding health information?: Never Pets and animals: No Sexually active: No Do you think of yourself as: straight/heterosexual Current gender identity: male What is your relationship status?: never How often do you talk on the phone with friends or family?: once per week How often do you get together with friends or relatives?: once per week How often do you attend mosque or cheondoism services?: decline to answer Do you belong to any clubs or organized social groups?: no Panel score (0-1 are the most socially isolated patients): 0 What type of physical activity do you participate in: walking Duration: 60-90 minutes/day Frequency: daily Kenzie/Evangelical: No preference Special kenzie needs: No Seatbelt use: always Helmet use: No Drive intox or ride w/intox limousine driver: No Do you feel safe at home: Yes Do you feel safe in your relationship?: Yes Readmission Within the Past 30 Days Yes or No: Yes Date of First Admission Date of 1st Admission: 08/27/23 Date of this Admission Date of Admission: 09/02/23 This admission was: Through ED Assessment for Readmission Summary of readmission circumstances, based upon interviews: Bear was hospitalized last week for 3 days with pneumonia and hemoptysis. She was treated, improved and was discharged. She returned last night with increasing SOB, more hemoptysis and hypoxia. She had a bronchoscopy this morning and was found to have a large mass in her right lung. She is being emergently transferred to [facility].
--- NOTE | 2023-09-03 10:42 | PDOC.CMIN ---
[facility] All Active Problems (Updated 09/03/23 @ 00:23 by Yang Villanueva DO) Nicotine use disorder (Acute) Acute respiratory failure with hypoxia (Acute) Sepsis (Acute) Pneumonia (Acute) Bronchospasm (Acute) Bronchiectasis (Acute) Thrombocytopenia (Chronic) Anemia (Chronic) Dense breasts (Acute) Pneumonia (Acute) Medical History Hypoxia Nicotine use disorder [place] [place] LUNG WITH REPAIRATIVE SURGERY Family History Father Heart disease Grandfather Heart disease Grandmother TB (tuberculosis) Son , 4.5 No problems noted. Son No problems noted. Son No problems noted. Social History Smoking/Tobacco Use Status: Current every day Tobacco Type: cigarettes Tobacco: How many years used: 40 Quit status: not considering quitting Second Hand Exposure: Yes Smoking risk assessment performed?: Yes Alcohol Intake: current Alcohol Intake frequency: holidays/special occasions only Drug use: Never Substance use type: does not use Household members: children Housing: house Communication Needs: Corrective Lenses Do you need help understanding health information?: Never Pets and animals: No Sexually active: No Do you think of yourself as: straight/heterosexual Current gender identity: male What is your relationship status?: never How often do you talk on the phone with friends or family?: once per week How often do you get together with friends or relatives?: once per week How often do you attend congregation or judaism services?: decline to answer Do you belong to any clubs or organized social groups?: no Panel score (0-1 are the most socially isolated patients): 0 What type of physical activity do you participate in: walking Duration: 60-90 minutes/day Frequency: daily Kenzie/Scientologist: No preference Special kenzie needs: No Seatbelt use: always Helmet use: No Drive intox or ride w/intox ambulance driver: No Do you feel safe at home: Yes Do you feel safe in your relationship?: Yes Readmission Within the Past 30 Days Yes or No: Yes Date of First Admission Date of 1st Admission: 08/27/23 Date of this Admission Date of Admission: 09/02/23 This admission was: Through ED Assessment for Readmission Summary of readmission circumstances, based upon interviews: Bear was recently hospitalized with pneumonia. She was discharged but continued to feel short of breath and again became hypoxic..
--- NOTE | 2023-09-03 11:55 | W.PM.DS.N ---
Date of service: 09/03/23 Time of Service: 11:55 DS: Diagnosis Discharge Diagnosis (1) Lung cancer: Status: Suspected Asessment and Plan: Patient initially presented with what looks like worsening organizing pneumonia after recent inpatient stay he was treated with linezolid and Zosyn. She had pulmonology consultation that resulted in a bronchoscopy on the morning of 09/03/2023. Bronchoscopy showed grossly bloody and friable appearing large endobronchial mass in the right upper lobe takeoff that was grossly bloody and friable with high concern for bleeding. (Please see operative note signed by Dr. Grijalva for complete details). Given the nature of this obstructing mass and high potential for uncontrolled bleeding, [facility] ICU was contacted and accepted the patient for transfer. At this time the patient is on high flow nasal cannula which she has required since her bronchoscopy. Prior to that she only required 2 L nasal cannula and her current high flow settings are 64% with 50 L saturating 92%. HPI as per admitting physician: 63-year-old female with a past medical history of 45 years of tobacco use, and 3 previous admissions for community-acquired pneumonia most recently here at [facility] from 08/27 until 08/30 presents back to the emergency department with sudden onset of shortness of breath. Patient states that after recently being discharged she had significant treatment of her symptoms while at home and was compliant with her medication regimen. However, early in the morning of 09/02/2023 she had a sudden onset of shortness of breath prompted her to call EMS reportedly found the patient to be hypoxic in the low 80s upon arrival which improved with 2 L nasal cannula. Patient denies any headache, lightheadedness, dizziness, nausea, vomiting, chest pain, fevers. In the emergency department she remained on 2 L nasal cannula to maintain oxygen saturation greater than 92%, she had a pulse of 94, blood pressure 145/89 and initial respiratory rate of 26. CBC showed an increase of white blood cell count of 17.9 which is up from 11 on day of discharge, as well as a thrombocytosis with a platelet count of 547 also up from previous discharge today. BMP was unremarkable, lactic acid was within normal limits, UA was negative, and chest CT showed atelectasis of the right middle lobe, cavitary changes in the right upper lobe to a lesser extent in the left upper lobe, nodular infiltrates in all lobes of the right lung and in the left lower lung as well as some in the left upper lobe which were all increased as compared to previous study. Patient was started on Zosyn and linezolid in the emergency room physician leora hospitalist for admission for patient with worsening multifocal pneumonia presumed to be hospital-acquired with acute hypoxic respiratory failure. (2) Pneumonia: Status: Acute (3) Acute respiratory failure with hypoxia: Status: Acute (4) Nicotine use disorder: Status: Acute Discharge Plan Disposition Patient Disposition: Transfer-Acute Inpatient Care Specific Acute Inpt Facility: [facility] Condition: Fair Discharge Details Reason For Visit: Acute hypoxic respiratory failure Admit Date/Time: 09/02/23 08:58 Admit Provider: Brent Donnelly Attending Provider: Brent Donnelly Primary Care Provider: Jean Pierre Humphreys Hospital Course Hospital Course: Patient initially presented with shortness of breath found to be worsening hypoxia from initially presumed worsening pneumonia after recent inpatient stay. She was initially started on Zosyn and linezolid. And after being seen by pulm/critical care physician patient had a bronchoscopy on the morning of 09/03/2023 which showed large obstructing friable mass in the right mainstem bronchus concerning for malignancy. Was recommended the patient be transferred to [facility] ICU for further evaluation and involvement with interventional pulmonology. Home Meds and New Rx's Prescriptions: Discontinued doxycycline hyclate 100 mg Capsule 100 mg PO Q12H Qty: 5 0RF cefpodoxime 200 mg Tablet 400 mg PO Q12H Qty: 5 0RF prednisone 20 mg Tablet See Taper PO DAILY Qty: 5 0RF Taper: Prednisone 20mg taper 30 mg Daily for 1 Day and 0 Hour 20 mg Daily for 1 Day and 0 Hour 10 mg Daily for 1 Day and 0 Hour albuterol sulfate 90 mcg/actuation HFA aerosol inhaler 3 puff inhalation Q4H PRNQty: 6.7 0RF Rx Instructions: Take up to 3 puffs 5 minutes apart every 4 hours as needed for wheezing. Use with spacer. Discharge Instructions Activity:: Activity as Tolerated Equipment/Supplies:: No Equipment Needed Diet:: As Tolerated Discharge Orders Discharge Orders: Discharge Order (Routine); Ordered 09/03/23 Ordered By: Brent Donnelly DS: Summary Time Spent with Patient providing and/or coordinating discharge services: Greater than 30 minutes Status at Discharge Functional status at discharge: independent ambulation Overall status at discharge: patient is not back to baseline Mental Status: mental status grossly normal Speech and Movement: speech and movement normal Mood: congruent mood Affect: normal affect Exam Narrative Exam Narrative: Acutely ill-appearing older female laying in bed in no acute distress HFNC, AOx4, heart RRR, lungs with diffuse crackles throughout, abdomen soft, non-tender, non-distended Psych Mental Status: mental status grossly normal Speech and Movement: speech and movement normal Mood: congruent mood Affect: normal affect DS: Data Vitals/I&O Vitals and I&O: Vital Signs Temperature 97.2 F L 09/03/23 10:01 Temperature Source Tympanic 09/03/23 10:01 Pulse 71 09/03/23 10:01 Pulse Rhythm Regular 09/03/23 10:00 Pulse 93 H 09/02/23 08:41 Respiratory Rate 18 09/03/23 10:01 Respiratory Effort Short of Breath 09/03/23 10:00 Respiratory Depth Shallow 09/03/23 10:00 Respiratory Pattern Irregular 09/03/23 10:00 Blood Pressure 116/65 09/03/23 10:01 Blood Pressure Mean 83 09/02/23 08:41 Pulse Oximetry 91 L 09/03/23 10:01 Oxygen Delivery Method High Flow System 09/03/23 10:01 Oxygen Flow Rate 50 09/03/23 10:01 Pain Level 1 09/03/23 10:01 Comment 64% 50Lb 30 09/03/23 10:01 Intake & Output 09/02/23 09/03/23 09/03/23 17:59 05:59 17:59 Intake Total 850 / 850 350 / 1200 1070 / 1070 Output Total 1000 / 1000 Balance -150 / -150 350 / 200 1070 / 1070 Weight 115 lb 11.883 oz Intake: IV 350 / 350 350 / 700 870 / 870 Oral 500 / 500 200 / 200 Output: Urine 1000 / 1000 Other: Urine Color Yellow Pale Yellow Urine Appearance Clear Clear Urine Odor Normal Comment voided in toilet, unsure of amount Emesis Description None Voiding Methods Toilet Toilet Data Completed and Pending Labs on day of discharge: Labs from last 24 hours 09/03/23 09/03/23 09/02/23 07:51 06:55 23:43 WBC 17.65 H RBC 3.10 L Hgb 7.3 L Hct 24.0 L MCV 77 L MCH 23.5 L MCHC 30.4 L RDW 19.3 H Plt Count 497 H MPV 9.8 Sodium 141 Potassium 3.5 Chloride 106 Carbon Dioxide 23.7 Anion Gap 11.3 H BUN 9 Creatinine 0.9 Est GFR (CKD-EPI 2020) 72.73 Glucose 90 Calcium 8.7 Magnesium 1.9 Procalcitonin BAL Neutrophils Pending BAL Lymphocytes Pending BAL Eosinophils Pending BAL Monocyte/Macrophage Pending Gram Stain Pending Blastomyces Ag Result Pending Blastomyces Ag Comment Pending Urine Histoplasma Ag Pending U Histoplasma Ag Index Pending Aspergillus Ag (EIA) MRSA (TEM-PCR) TB Test Ag - Nil 1 TB Test Ag - Nil 2 TB Test (QFT) Interp AFB Source Pending AFB Culture Final Res Pending Aerobic Culture Pending Fungal Specimen Source Pending B-(1,3)-D-Glucan Quant B-(1,3)-D-Glucan Qual Fungal Culture Status Pending Fungal Culture Final Pending Fungal Smear Result Pending M. Tuberculosis PCR Pending AFB Smear (Ref Lab) Pending Ref Test Specimen Type Pending Ref Report Verification Pending 09/02/23 09/02/23 19:59 14:50 WBC RBC Hgb Hct MCV MCH MCHC RDW Plt Count MPV Sodium Potassium Chloride Carbon Dioxide Anion Gap BUN Creatinine Est GFR (CKD-EPI 2020) Glucose Calcium Magnesium Procalcitonin < 0.1 BAL Neutrophils BAL Lymphocytes BAL Eosinophils BAL Monocyte/Macrophage Gram Stain Blastomyces Ag Result Blastomyces Ag Comment Urine Histoplasma Ag U Histoplasma Ag Index Aspergillus Ag (EIA) Pending MRSA (TEM-PCR) Negative TB Test Ag - Nil 1 Pending TB Test Ag - Nil 2 Pending TB Test (QFT) Interp Pending AFB Source AFB Culture Final Res Aerobic Culture Fungal Specimen Source B-(1,3)-D-Glucan Quant Pending B-(1,3)-D-Glucan Qual Pending Fungal Culture Status Fungal Culture Final Fungal Smear Result M. Tuberculosis PCR AFB Smear (Ref Lab) Ref Test Specimen Type Ref Report Verification Preliminary micro results at discharge 09/02/23 06:35 Blood Culture - Preliminary Blood NO GROWTH 24 HOURS 09/02/23 06:42 Blood Culture - Preliminary Blood NO GROWTH 24 HOURS PFSH All Active Problems (Updated 09/03/23 @ 12:02 by Brent Donnelly MD) Nicotine use disorder (Acute) Acute respiratory failure with hypoxia (Acute) Sepsis (Acute) Pneumonia (Acute) Bronchospasm (Acute) Bronchiectasis (Acute) Thrombocytopenia (Chronic) Anemia (Chronic) Dense breasts (Acute) Pneumonia (Acute) Medical History Hypoxia Nicotine use disorder Surgical History LUNG SURGERY 1995;[facility] [place]; COLLAPSED LUNG WITH REPAIRATIVE SURGERY Family History Father Heart disease Grandfather Heart disease Grandmother TB (tuberculosis) Son , 4.5 No problems noted. Son No problems noted. Son No problems noted. Social History Smoking/Tobacco Use Status: Current every day Tobacco Type: cigarettes Tobacco: How many years used: 40 Quit status: not considering quitting Second Hand Exposure: Yes Smoking risk assessment performed?: Yes Alcohol Intake: current Alcohol Intake frequency: holidays/special occasions only Drug use: Never Substance use type: does not use Household members: children Housing: house Communication Needs: Corrective Lenses Do you need help understanding health information?: Never Pets and animals: No Sexually active: No Do you think of yourself as: straight/heterosexual Current gender identity: male What is your relationship status?: never How often do you talk on the phone with friends or family?: once per week How often do you get together with friends or relatives?: once per week How often do you attend scientologist or scientology services?: decline to answer Do you belong to any clubs or organized social groups?: no Panel score (0-1 are the most socially isolated patients): 0 What type of physical activity do you participate in: walking Duration: 60-90 minutes/day Frequency: daily Kenzie/Yarsani: No preference Special kenzie needs: No Seatbelt use: always Helmet use: No Drive intox or ride w/intox rental car ferry driver: No Do you feel safe at home: Yes Do you feel safe in your relationship?: Yes Time Spent with Patient Time Spent with Patient: <45 minutes Time was spent: preparing to see the patient(eg.review tests), obtaining and/or reviewing separately otained hiistory, ordering medications,tests, procedures, referring, communicating with other health point of care technician, indepentently interpreting results, counseling the patient and care coordination
[2023-09-03] MEDS: Lactated Ringers 1,000 ML 75 ML IV (12:25)
--- NOTE | 2023-09-03 16:33 | CHAPLAIN ---
I had a brief visit with Bear before she was transported to [facility]. She told me that one of her two sons in currently working and staying in [place], so he will be able to visit her. Her other son lives locally, and her mom lives in [place]. I gave Bear a prayer shawl.
--- NOTE | 2023-09-03 18:49 | CMDISCH_ITS ---
Date of service: 09/03/23 Time of Service: 18:49 LACE Index Scoring Tool Questions: Length of Stay (in days): 1 Was the patient admitted via the E.D.?: Yes Comorbidities: Chronic Pulmonary Disease E.D. Visits: 4 Answers: Total Score: 10 Risk of Readmission: High Risk Care Management Discharge Plan Reason for Hospitalization: sepsis Discharge Plan: Bear will be transferred to [facility]. She had a bronchoscopy this morning which showed a large mass occluding the upper lobe of her right lung. She will follow up with providers and plan of care and transport with EMS. Patient/Family Education Needs: Review of discharge instructions including limitations, activity, medications, follow up plan, discuss Ask Me Three Services Needed at Discharge: Transportation
[2023-09-04 11:47] LABS: TB Interpretation Negative (Negative); TB1 Ag minus Nil 0.01 IU/ml
[2023-09-05 09:03] LABS: Eosinophils Fluid Relative 0 %; Lymphocytes Fluid Relative 0 %; Mono/Macrophage Fluid Relative 13 %; Neutrophils Fluid Relative 4 %; Other Cells Fluid Relative 84 %
[2023-09-05 09:09] LABS: Path Review Fluid, other See Comments
[2023-09-05 12:53] LABS: Fungitell Qualitative Negative (Negative); Fungitell Quantitative Value <31 pg/mL (<60 pg/mL)
[2023-09-06 13:10] LABS: Blastomyces Ag Result Not Detected; Blastomyces Ag Value Not Detected
[2023-10-01 14:43] LABS: Fungus Smear No Fungi Seen
== END 2023-09-03 14:15 | disposition short-term general hospital (02) | DRG 871 ==
LOC: ER 06:56 → MS 09:02
PROVIDERS: Student in an Organized Health Care Education/Training Program; Admitting Provider Family Medicine; Emergency Provider Student in an Organized Health Care Education/Training Program; PCP Family Medicine; Visit Provider Family Medicine
PROC: 0BJ08ZZ Inspection of Tracheobronchial Tree, Via Natural or Artificial Opening Endoscopic (ICD-10-PCS; CPT 31622; principal; 2023-09-03 07:30)
DX: A41.9 Sepsis, unspecified organism (principal); J18.9 Pneumonia, unspecified organism; J96.01 Acute respiratory failure with hypoxia; C34.11 Malignant neoplasm of upper lobe, right bronchus or lung; R65.20 Severe sepsis without septic shock; F17.210 Nicotine dependence, cigarettes, uncomplicated; D64.9 Anemia, unspecified; J47.9 Bronchiectasis, uncomplicated; D75.839 Thrombocytosis, unspecified
CPT/HCPCS: 31624; 31645; 00123; 36415; 71275; 80048; 80053; 80162; 82805; 82962; 84145; 85027; 87040; 87070; 87102; 87116; 87205; 87206; 87305; 87449; 87637; 87641; 93005; 94640; 96365; 96366; 96367; 96375; 99285; J1650; 83735; 83880; 84484; 85025; 85610; 85730; 86480; 87385; 88104; 93010; 94667; 94760; 99223; 99239; J1100; J2405; J2543; J2930; J3490; J7620

== ENCOUNTER 2023-11-25 05:33 | Outpatient (CLI) | payer BC, SELFPAY ==
[2023-11-25] MEDS: Levalbuterol HFA 15 GM INH 4 PUFF IH (16:23)
[2023-11-25] MEDS: Inhaler, Assist Device 1 EACH MC (16:23)
--- NOTE | 2023-11-26 12:45 | W.PFT ---
Date of service: 11/25/23 Time of Service: 14:51 Pulmonary Function Test Result Indications: Emphysema Interpretation Spirometry: There is no airflow limitation. There is significant bronchodilator response. Lung Volumes: Normal lung volumes Diffusion Capacity: Normal diffusion. Airway Pressure: Normal airways resistance Impression Normal pulmonary function with a positive bronchodilator response. Clinical Correlation therefore is recommended.
== END 2023-11-25 05:34 | disposition home or self-care (01) ==
LOC: RT 05:33
PROVIDERS: PCP Family Medicine; Visit Provider Student in an Organized Health Care Education/Training Program
DX: J43.9 Emphysema, unspecified (principal)
CPT/HCPCS: 94060; 94726; 94729